=== PATIENT | male | born 1995 | race Caucasian/White ===

== ENCOUNTER 2020-12-11 04:21 | Inpatient (IN) | payer OTHER ==
[2020-12-11] MEDS ORDERED: FAMOTIDINE 20 MG/2 ML INJ IV ONE (04:23)
[2020-12-11] MEDS ORDERED: SODIUM CHLORIDE 0.9% 1000 ML 1,000 ML IV ONE (04:23)
[2020-12-11] MEDS ORDERED: KETOROLAC 30 MG/1 ML INJ IV ONE (04:23)
[2020-12-11] MEDS ORDERED: ONDANSETRON 4 MG ODT TAB PO/SL ONE (04:23)
[2020-12-11] MEDS ORDERED: MORPHINE 2 MG/1 ML INJ IV ONE (05:20)
--- NOTE | 2020-12-11 05:20 | Emergency Department Report ---
Blank Doc - Documentation Documentation: 25-year-old male with no significant past medical surgical history presents to the hospital complaining of cramp abdominal pain greatest in epigastric area with one episode of vomiting prior to arrival. Patient describes pain as 10/10 intensity and prior to my evaluation received protocol medication including Zofran, Pepcid, Toradol, and IV fluid. Denies etoh intake. Patient requesting morphine for pain. pt has tenderness on screening exam morphine 2 mg provided pt to be evaluated by oncoming provider. lab pending
[2020-12-11 05:37] LABS: Alanine Aminotransferase 584 units/L (7-56); Albumin 4.6 g/dL (3.9-5); Bilirubin,Direct 0.9 mg/dL (0-0.2); Blood Urea Nitrogen 9 mg/dL (9-20); Calcium 9.2 mg/dL (8.4-10.2); Hemolysis Index 50
[2020-12-11 05:44] LABS: BUN/Creatinine Ratio 23
[2020-12-11 05:48] LABS: Hematocrit 44.5 % (35.5-45.6); Hemoglobin 14.9 gm/dl (11.8-15.2); Mean Corpuscular HGB Conc 34 % (32-34); Mean Corpuscular Volume 95 fl (84-94); Platelet Count 248 K/mm3 (140-440); Red Cell Distribution Width 12.6 % (13.2-15.2)
[2020-12-11] MEDS ORDERED: HYDROmorphone 1 MG/1 ML INJ IV ONE (06:18)
--- NOTE | 2020-12-11 06:23 | Emergency Department Report ---
ED Abdominal Pain HPI - General Chief Complaint: Abdominal Pain Stated Complaint: EMESIS/ABD PAIN Time Seen by Provider: 12/11/20 06:13 Source: patient Mode of arrival: Ambulatory Limitations: No Limitations - History of Present Illness Initial Comments: Patient is 25 years old male with no significant past medical history. Patient presented to the ER complaining of abdominal pain, epigastric with radiation to the back. Patient stated that pain started all of a sudden last night. Patient presented with nausea and vomiting and unable to keep anything down. Patient denied any alcohol abuse recently. Patient also denied any fever or chills. No diarrhea. No chest pain or shortness of breath. MD Complaint: abdominal pain -: Last night Location: epigastric Radiation: back Migration to: no migration Severity scale (0 -10): 8 Quality: sharp Consistency: constant - Related Data Allergies Allergy/AdvReac Type Severity Reaction Status Date / Time No Known Allergies Allergy Verified 12/11/20 06:38 ED Review of Systems ROS: Stated complaint: EMESIS/ABD PAIN Other details as noted in HPI Comment: All other systems reviewed and negative Constitutional: denies: chills, fever Respiratory: denies: shortness of breath Cardiovascular: denies: chest pain, palpitations Gastrointestinal: abdominal pain, nausea, vomiting. denies: diarrhea, constipation, hematemesis, hematochezia Musculoskeletal: denies: back pain Neurological: denies: headache ED Past Medical Hx - Past Medical History Previous Medical History?: No - Surgical History Past Surgical History?: No - Social History Smoking Status: Unknown if ever smoked Substance Use Type: None ED Physical Exam - General Limitations: No Limitations General appearance: alert, in distress (due to pain) - Head Head exam: Present: atraumatic, normocephalic, normal inspection - Eye Eye exam: Present: normal appearance - ENT ENT exam: Present: mucous membranes dry - Neck Neck exam: Present: normal inspection, full ROM. Absent: tenderness, meningismus - Respiratory Respiratory exam: Present: normal lung sounds bilaterally - Cardiovascular Cardiovascular Exam: Present: regular rate, normal rhythm, normal heart sounds - GI/Abdominal GI/Abdominal exam: Present: soft, tenderness, normal bowel sounds. Absent: distended, guarding, rebound, rigid, organomegaly, mass, bruit, pulsatile mass, hernia - Extremities Exam Extremities exam: Present: normal inspection, full ROM, normal capillary refill. Absent: tenderness, pedal edema, joint swelling, calf tenderness - Back Exam Back exam: Present: normal inspection, full ROM. Absent: CVA tenderness (R), CVA tenderness (L) - Neurological Exam Neurological exam: Present: alert, oriented X3, CN II-XII intact - Psychiatric Psychiatric exam: Present: normal mood - Skin Skin exam: Present: warm, intact, normal color ED Course Vital Signs 12/11/20 12/11/20 12/11/20 04:29 04:46 05:01 Temperature 122.0 F H 97.3 F L Pulse Rate 39 L 50 L 72 Respiratory 18 18 17 Rate Blood Pressure 108/43 137/51 O2 Sat by Pulse 100 99 97 Oximetry 12/11/20 12/11/20 12/11/20 05:12 06:24 06:33 Temperature Pulse Rate 75 Respiratory 18 18 18 Rate Blood Pressure 132/75 O2 Sat by Pulse 98 Oximetry ED Medical Decision Making - Lab Data Result diagrams: 12/11/20 04:32 12/11/20 04:32 - Medical Decision Making Patient is 25 years old male with no significant past medical history. Patient presented to the ER complaining of abdominal pain, epigastric with r adiation to the back. Patient stated that pain started all of a sudden last night. Patient presented with nausea and vomiting and unable to keep anything down. Patient denied any alcohol abuse recently. Patient also denied any fever or chills. No diarrhea. No chest pain or shortness of breath. Labs showed significantly elevated lipase. CT abdomen and pelvis showed acute pancreatitis with out complication. Patient received multiple pain medication and antiemetic medication. I discussed the patient with Dr. Cortes, she advised to admit the patient to Dr. Adame. Critical care attestation.: If time is entered above; I have spent that time in minutes in the direct care of this critically ill patient, excluding procedure time. ED Disposition Clinical Impression: Acute abdominal pain, Acute nausea with nonbilious vomiting, Acute pancreatitis Disposition: OP ADMIT IP TO THIS HOSP Is pt being admited?: Yes Condition: Stable Referrals: PRIMARY CARE, [Primary Care Provider] - 3-5 Days
[2020-12-11] MEDS ORDERED: SODIUM CHLORIDE 0.9% 1000 ML 1,000 ML ONE (08:20)
[2020-12-11] MEDS: POTASSIUM CHLORIDE 10 MEQ 10 MEQ/100 ML BAG IV SCH ×2 (08:40→11:53)
[2020-12-11 08:52] LABS: Platelet Estimate Consistent w Auto; RBC Morphology Normal; Total Cells Counted 100
[2020-12-11] MEDS ORDERED: MORPHINE 2 MG/1 ML INJ ONE (09:13)
--- NOTE | 2020-12-11 09:33 | History and Physical Report ---
History of Present Illness Date of examination: 12/11/20 Date of admission: 12/11/20 08:54 Chief complaint: Abdominal pain History of present illness: Patient is a 25-year-old male with no significant past medical history except for toe surgery in the past who presents to the ED with complaint of abdominal pain that has been ongoing for about 3 days starts in the epigastric area down to the umbilical area and radiates to the back. The patient states that for the past 3 days this has been waxing and waning but all of a sudden last night became persistent associated with nausea vomiting but no diarrhea. He was unable to keep any food down. While he states that he drinks socially beer his last drink was about a week ago according to him where he had 3-4 bottles. In the ER he was noted to have a lipase of over 2000 with a clinical diagnosis of pancreatitis were asked to admit the patient for further evaluation. Pain is rated a 7/10 in intensity Past History Past Medical History: other Past Surgical History: Other (Toe surgery) Social history: lives with family, full code. denies: alcohol abuse (Although drinks socially), prescription drug abuse Family history: no significant family history Medications and Allergies Allergies Allergy/AdvReac Type Severity Reaction Status Date / Time No Known Allergies Allergy Verified 12/11/20 06:38 Active Meds: Active Medications Acetaminophen (Acetaminophen 325 Mg Tab) 650 mg PO Q4H PRN PRN Reason: Pain MILD(1-3)/Fever >100.5/HANKINS Albuterol (Albuterol 2.5 Mg/3 Ml Nebu) 2.5 mg IH Q4HRT PRN PRN Reason: Shortness Of Breath Chlordiazepoxide HCl (Chlordiazepoxide 25 Mg Cap) 50 mg PO Q1H PRN PRN Reason: CIWA-Ar 8-15 Dextrose/Lactated Ringer's (D5lr) 1,000 mls @ 125 mls/hr IV DIRECT ERAN Morphine Sulfate (Morphine 2 Mg/1 Ml Inj) 2 mg IV Q4H PRN PRN Reason: Pain, Moderate (4-6) Naloxone HCl (Naloxone 0.4 Mg/1 Ml Inj) 0.1 mg IV Q2MIN PRN PRN Reason: Res Rate </= 8 or 02 SAT < 92% Ondansetron HCl (Ondansetron 4 Mg/2 Ml Inj) 4 mg IV Q4H PRN PRN Reason: Nausea And Vomiting Sodium Chloride (Sodium Chloride 0.9% 10 Ml Flush Syringe) 10 ml IV BID ERAN Sodium Chloride (Sodium Chloride 0.9% 10 Ml Flush Syringe) 10 ml IV PRN PRN PRN Reason: LINE FLUSH Review of Systems All systems: negative Cardiovascular: no chest pain, no orthopnea, no palpitations, no rapid/irregular heart beat, no edema, no lightheadedness, no paroxysmal nocturnal dyspnea, no phlebitis, no high blood pressure Respiratory: no cough, no cough with sputum, no excessive sputum, no hemoptysis Gastrointestinal: abdominal pain, nausea, vomiting, no diarrhea, no constipation, no hematemesis, no coffee ground emesis, no melena, no early satiety, no heartburn, no jaundice, no early satiety Genitourinary Male: no flank pain, no urinary hesitancy, no nocturia, no incontinence, no testicular pain, no difficulties fathering child Musculoskeletal: no neck pain, no arm numbness/tingling, no low back pain, no shooting leg pain, no muscle weakness, no limitation of motion, no fractures, no arthritis Integumentary: no pruritis, no redness, no lesions, no depigmentation, no dryness, no color changes, no brittle nails, no foot/leg ulcers Neurological: no paralysis, no tingling, no seizures, no convulsions, no change in mentation, no confusion, no double vision, no hearing difficulties Psychiatric: no memory loss, no hypersomnia, no change in libido, no suicidal ideation, no difficulties concentrating Endocrine: no heat intolerance, no excessive thirst, no deepening of the voice, no low blood sugars Hematologic/Lymphatic: no easy bruising Allergic/Immunologic: no allergic rhinitis Exam - Physical Exam Narrative exam: VITAL SIGNS: Reviewed. GENERAL: The patient appears normally developed, Vital signs as documented. HEAD: No signs of head trauma. EYES: Pupils are equal. Extraocular motions intact. EARS: Hearing grossly intact. MOUTH: Oropharynx is normal. NECK: No adenopathy, no JVD. CHEST: Chest with clear breath sounds bilaterally. No wheezes, rales, or rhonchi. CARDIAC: Regular rate and rhythm. S1 and S2, without murmurs, gallops, or rubs. VASCULAR: No Edema. Peripheral pulses normal and equal in all extremities. ABDOMEN: Soft, tender in the epigastric area and non distended. No rebound or guarding, and no masses palpated. Bowel Sounds normal. MUSCULOSKELETAL: Good range of motion of all major joints. Extremities without clubbing, cyanosis or edema. NEUROLOGIC EXAM: Alert and oriented x 3 No focal sensory or strength deficits. Speech normal. Follows commands. PSYCHIATRIC: Mood normal. SKIN: detail exam as documented in skin assessment - Constitutional Vitals: Temp Pulse Resp BP Pulse Ox 97.3 F L 75 18 132/75 98 12/11/20 04:46 12/11/20 06:24 12/11/20 06:33 12/11/20 06:24 12/11/20 06:24 Results - Labs CBC & Chem 7: 12/11/20 04:32 12/11/20 04:32 Labs: Laboratory Last Values WBC 12.7 K/mm3 (4.5-11.0) H 12/11/20 04:32 RBC 4.70 M/mm3 (3.65-5.03) 12/11/20 04:32 Hgb 14.9 gm/dl (11.8-15.2) 12/11/20 04:32 Hct 44.5 % (35.5-45.6) 12/11/20 04:32 MCV 95 fl (84-94) H 12/11/20 04:32 MCH 32 pg (28-32) 12/11/20 04:32 MCHC 34 % (32-34) 12/11/20 04:32 RDW 12.6 % (13.2-15.2) L 12/11/20 04:32 Plt Count 248 K/mm3 (140-440) 12/11/20 04:32 Baso % (Auto) Taker Off 12/11/20 04:32 Lymph # (Auto) Taker Off 12/11/20 04:32 Add Manual Diff Complete 12/11/20 04:32 Total Counted 100 12/11/20 04:32 Seg Neuts % (Manual) 41.0 % (40.0-70.0) 12/11/20 04:32 Lymphocytes % (Manual) 54.0 % (13.4-35.0) H 12/11/20 04:32 Monocytes % (Manual) 4.0 % (0.0-7.3) 12/11/20 04:32 Eosinophils % (Manual) 1.0 % (0.0-4.3) 12/11/20 04:32 Nucleated RBC % Not Reportable 12/11/20 04:32 Seg Neutrophils # Man 5.2 K/mm3 (1.8-7.7) 12/11/20 04:32 Band Neutrophils # 0.0 K/mm3 12/11/20 04:32 Lymphocytes # (Manual) 6.9 K/mm3 (1.2-5.4) H 12/11/20 04:32 Abs React Lymphs (Man) 0.0 K/mm3 12/11/20 04:32 Monocytes # (Manual) 0.5 K/mm3 (0.0-0.8) 12/11/20 04:32 Eosinophils # (Manual) 0.1 K/mm3 (0.0-0.4) 12/11/20 04:32 Basophils # (Manual) 0.0 K/mm3 (0.0-0.1) 12/11/20 04:32 Metamyelocytes # 0.0 K/mm3 12/11/20 04:32 Myelocytes # 0.0 K/mm3 12/11/20 04:32 Promyelocytes # 0.0 K/mm3 12/11/20 04:32 Blast Cells # 0.0 K/mm3 12/11/20 04:32 WBC Morphology Not Reportable 12/11/20 04:32 Hypersegmented Neuts Not Reportable 12/11/20 04:32 Hyposegmented Neuts Not Reportable 12/11/20 04:32 Hypogranular Neuts Not Reportable 12/11/20 04:32 Smudge Cells Not Reportable 12/11/20 04:32 Toxic Granulation Not Reportable 12/11/20 04:32 Toxic Vacuolation Not Reportable 12/11/20 04:32 Dohle Bodies Not Reportable 12/11/20 04:32 Pelger-Huet Anomaly Not Reportable 12/11/20 04:32 Annie Rods Not Reportable 12/11/20 04:32 Platelet Estimate Consistent w auto 12/11/20 04:32 Clumped Platelets Not Reportable 12/11/20 04:32 Plt Clumps, EDTA Not Reportable 12/11/20 04:32 Large Platelets Not Reportable 12/11/20 04:32 Giant Platelets Not Reportable 12/11/20 04:32 Platelet Satelliting Not Reportable 12/11/20 04:32 Plt Morphology Comment Not Reportable 12/11/20 04:32 RBC Morphology Normal 12/11/20 04:32 Dimorphic RBCs Not Reportable 12/11/20 04:32 Polychromasia Not Reportable 12/11/20 04:32 Hypochromasia Not Reportable 12/11/20 04:32 Poikilocytosis Not Reportable 12/11/20 04:32 Anisocytosis Not Reportable 12/11/20 04:32 Microcytosis Not Reportable 12/11/20 04:32 Macrocytosis Not Reportable 12/11/20 04:32 Spherocytes Not Reportable 12/11/20 04:32 Pappenheimer Bodies Not Reportable 12/11/20 04:32 Sickle Cells Not Reportable 12/11/20 04:32 Target Cells Not Reportable 12/11/20 04:32 Tear Drop Cells Not Reportable 12/11/20 04:32 Ovalocytes Not Reportable 12/11/20 04:32 Helmet Cells Not Reportable 12/11/20 04:32 [place] Bodies Not Reportable 12/11/20 04:32 Aurora Rings Not Reportable 12/11/20 04:32 Hemanth Cells Not Reportable 12/11/20 04:32 Bite Cells Not Reportable 12/11/20 04:32 Crenated Cell Not Reportable 12/11/20 04:32 Elliptocytes Not Reportable 12/11/20 04:32 Acanthocytes (Spur) Not Reportable 12/11/20 04:32 Rouleaux Not Reportable 12/11/20 04:32 Hemoglobin C Crystals Not Reportable 12/11/20 04:32 Schistocytes Not Reportable 12/11/20 04:32 Malaria parasites Not Reportable 12/11/20 04:32 Alex Bodies Not Reportable 12/11/20 04:32 Hem Pathologist Commnt No 12/11/20 04:32 Sodium 139 mmol/L (137-145) 12/11/20 04:32 Potassium 3.2 mmol/L (3.6-5.0) L 12/11/20 04:32 Chloride 101.8 mmol/L (98-107) 12/11/20 04:32 Carbon Dioxide 23 mmol/L (22-30) 12/11/20 04:32 Anion Gap 17 mmol/L 12/11/20 04:32 BUN 9 mg/dL (9-20) 12/11/20 04:32 Creatinine 0.4 mg/dL (0.8-1.3) L 12/11/20 04:32 Estimated GFR > 60 ml/min 12/11/20 04:32 BUN/Creatinine Ratio 23 % 12/11/20 04:32 Glucose 144 mg/dL (75-100) H 12/11/20 04:32 Calcium 9.2 mg/dL (8.4-10.2) 12/11/20 04:32 Total Bilirubin 1.50 mg/dL (0.1-1.2) H 12/11/20 04:32 Direct Bilirubin 0.9 mg/dL (0-0.2) H 12/11/20 04:32 Indirect Bilirubin 0.6 mg/dL 12/11/20 04:32 AST 226 units/L (5-40) H 12/11/20 04:32 ALT 584 units/L (7-56) H 12/11/20 04:32 Alkaline Phosphatase 160 units/L (35-129) H 12/11/20 04:32 Total Protein 7.4 g/dL (6.3-8.2) 12/11/20 04:32 Albumin 4.6 g/dL (3.9-5) 12/11/20 04:32 Albumin/Globulin Ratio 1.6 % 12/11/20 04:32 Lipase 2544 units/L (13-60) H 12/11/20 04:32 Quintana/IV: IV Catheter Type [Left INT / Saline Lock Antecubital] Assessment and Plan Assessment and plan: Patient is a 25-year-old male with no significant past medical history except for toe surgery in the past who presents to the ED with complaint of abdominal p ain that has been ongoing for about 3 days starts in the epigastric area down to the umbilical area and radiates to the back. The patient states that for the past 3 days this has been waxing and waning but all of a sudden last night became persistent associated with nausea vomiting but no diarrhea. He was unable to keep any food down. While he states that he drinks socially beer his last drink was about a week ago according to him where he had 3-4 bottles. In the ER he was noted to have a lipase of over 2000 with a clinical diagnosis of pancreatitis were asked to admit the patient for further evaluation. Pain is rated a 7/10 in intensity Imaging study of ultrasound obtained shows cholelithiasis with inflamed pancreas. Dilated common bile duct. Abdominal pain Acute pancreatitis likely causing above could be gallstone Cholelithiasis Transaminitis Hyperbilirubinemia Plan Admit patient to inpatient care [facility] protocol Pain control with Dilaudid patient has received multiple doses in the ED already. Antiemetics Keep n.p.o. If patient becomes hungry wants to eat may try clear liquid diet. Reassess pain Surgical consult. EtOH use counseling considering social use but bottle count in my opinion is excess DVT and GI prophylaxis Advance Directives: Yes Plan of care discussed with patient/family: Yes
[2020-12-11] MEDS ORDERED: NALOXONE 0.4 MG/1 ML INJ IV PRN (10:00)
--- NOTE | 2020-12-11 11:04 | Ultrasound Report ---
ULTRASOUND ABDOMEN, COMPLETE INDICATION / CLINICAL INFORMATION: pancreatitis. COMPARISON: None available. FINDINGS: PANCREAS: Pancreatic tail is not well seen ABDOMINAL AORTA: No significant abnormality. IVC: No significant abnormality. LIVER: Liver measures 16 cm. There is fatty infiltration. GALLBLADDER: Gallstones. No gallbladder wall thickening. BILE DUCTS: Marked dilatation the common bile duct Common bile duct measures 10 mm. KIDNEYS: Right: No significant abnormality. Left: No significant abnormality. SPLEEN: Enlarged measuring 12.9 cm FREE FLUID: None. ADDITIONAL FINDINGS: None. IMPRESSION: 1. Cholelithiasis. No pericholecystic fluid. 2. Common bile duct is dilated measuring 10 mm. No definite ductal stone is seen on this exam however clinical correlation and follow-up. 3. Fatty infiltration liver. Spleen is mildly enlarged. Signer Name: Josué Jackson MD Signed: 12/11/2020 11:00 AM Workstation Name: [email or web address]
[2020-12-11] MEDS ORDERED: POTASSIUM CHLORIDE 10 MEQ 10 MEQ/100 ML BAG IV ONE (11:23)
[2020-12-11] MEDS: HYDROmorphone 1 MG/1 ML INJ IV PRN ×3 (11:40→21:18)
[2020-12-11] MEDS: D5W/LACTATED RINGERS 1,000 ML IV SCH ×2 (11:53→22:26)
[2020-12-11] MEDS ORDERED: ALBUTEROL 2.5 MG/3 ML NEBU IH PRN (12:00)
[2020-12-11] MEDS: ONDANSETRON 4 MG/2 ML INJ IV PRN (12:40)
[2020-12-11] MEDS: MORPHINE 2 MG/1 ML INJ IV PRN (13:13)
--- NOTE | 2020-12-11 15:41 | Magnetic Resonance Report ---
MR ABDOMEN MRCP HISTORY: Dilated common bile duct TECHNIQUE: Multisequence, multiplanar MRI without contrast. Thin slab and radial MRCP images. COMPARISON: CT abdomen and pelvis and ultrasound abdomen performed earlier the same day. FINDINGS: Moderate fluid and inflammatory changes surrounding the pancreas extending to the left paracolic gutt er. The pancreatic parenchyma is mildly edematous but homogeneous. No evidence for mass, pseudocyst o r necrosis. Mild hepatic steatosis is noted. No focal liver lesion. The gallbladder is partially contracted and c ontains a few stones measuring up to 7 mm. The MRCP images demonstrate no evidence for choledocholith iasis or intrahepatic biliary dilatation. The CBD measures 6.8 mm on MRCP. Signal characteristics of the spleen, kidneys, adrenal glands and visualized bowel loops are within n ormal limits. The vascular structures are widely patent. Normal bone marrow signal in the visualized osseous structures. IMPRESSION: Findings consistent with acute interstitial pancreatitis. Cholelithiasis. No evidence for choledocholithiasis. The CBD measures 6.8 mm on MRCP. Signer Name: Leonel Kothari Jr, MD Signed: 12/11/2020 3:36 PM Workstation Name: [id number]
[2020-12-11] MEDS: METOCLOPRAMIDE 10 MG/2 ML INJ IV SCH ×2 (15:51→22:26)
--- NOTE | 2020-12-11 16:13 | Consultation ---
History of Present Illness Consult date: 12/11/20 Reason for consult: abdominal pain Chief complaint: abdominal pain - History of present illness History of present illness: 25 yo M with no PMHx who presented to ER with c/o severe, sharp abdominal pain. The pain is located in the epigastrum and radiates to the rest of the abdomen. It started 3 days prior to presentation and waxes and wanes. However, it woke him from sleep today and so he came to ER. He had pain like this one time before and it resolved on its own. NO f/c, cp, sob. +nausea and vomiting. 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 Past History Past Medical History: No medical history Past Surgical History: Other (R ankle surgery, Toe surgery) Social history: lives with family, full code. denies: alcohol abuse (Although drinks socially), prescription drug abuse Family history: no significant family history Medications and Allergies Allergies Allergy/AdvReac Type Severity Reaction Status Date / Time No Known Allergies Allergy Verified 12/11/20 06:38 Active Meds: Active Medications Acetaminophen (Acetaminophen 325 Mg Tab) 650 mg PO Q4H PRN PRN Reason: Pain MILD(1-3)/Fever >100.5/HANKINS Albuterol (Albuterol 2.5 Mg/3 Ml Nebu) 2.5 mg IH Q4HRT PRN PRN Reason: Shortness Of Breath Chlordiazepoxide HCl (Chlordiazepoxide 25 Mg Cap) 50 mg PO Q1H PRN PRN Reason: CIWA-Ar 8-15 Hydromorphone HCl (Hydromorphone 1 Mg/1 Ml Inj) 0.5 mg IV Q3H PRN PRN Reason: Pain , Severe (7-10) Last Admin: 12/11/20 15:37 Dose: 0.5 mg Documented by: Dextrose/Lactated Ringer's (D5lr) 1,000 mls @ 125 mls/hr IV DIRECT ERAN Last Admin: 12/11/20 11:53 Dose: 125 mls/hr Documented by: Metoclopramide HCl (Metoclopramide 10 Mg/2 Ml Inj) 10 mg IV Q8H ERAN Morphine Sulfate (Morphine 2 Mg/1 Ml Inj) 2 mg IV Q4H PRN PRN Reason: Pain, Moderate (4-6) Last Admin: 12/11/20 13:13 Dose: 2 mg Documented by: Naloxone HCl (Naloxone 0.4 Mg/1 Ml Inj) 0.1 mg IV Q2MIN PRN PRN Reason: Res Rate </= 8 or 02 SAT < 92% Ondansetron HCl (Ondansetron 4 Mg/2 Ml Inj) 4 mg IV Q4H PRN PRN Reason: Nausea And Vomiting Last Admin: 12/11/20 12:40 Dose: 4 mg Documented by: Sodium Chloride (Sodium Chloride 0.9% 10 Ml Flush Syringe) 10 ml IV BID ERAN Sodium Chloride (Sodium Chloride 0.9% 10 Ml Flush Syringe) 10 ml IV PRN PRN PRN Reason: LINE FLUSH Review of Systems All systems: negative (10 pt ROS performed and negative except for that listed in HPI) Exam Vital Signs Temp Pulse Resp BP Pulse Ox 122.0 F H 39 L 18 108/43 100 12/11/20 04:29 12/11/20 04:29 12/11/20 04:29 12/11/20 04:12/11/20 04:29 Narrative exam: Gen: AAOx3. NAD ENT: No scleral icterus or conjunctival pallor CV: S1, S2+ Resp: even and unlabored Abd: soft, ND, +epigastric and b/l upper quadrant TTP. No r/r/g Ext: no c/c/e Results - Labs 12/11/20 04:32 12/11/20 04:32 Abnormal lab results 12/11/20 12/11/20 Range/Units 04:32 04:32 WBC 12.7 H (4.5-11.0) K/mm3 MCV 95 H (84-94) fl RDW 12.6 L (13.2-15.2) % Lymphocytes % (Manual) 54.0 H (13.4-35.0) % Lymphocytes # (Manual) 6.9 H (1.2-5.4) K/mm3 Potassium 3.2 L (3.6-5.0) mmol/L Creatinine 0.4 L (0.8-1.3) mg/dL Glucose 144 H (75-100) mg/dL Total Bilirubin 1.50 H (0.1-1.2) mg/dL Direct Bilirubin 0.9 H (0-0.2) mg/dL AST 226 H (5-40) units/L ALT 584 H (7-56) units/L Alkaline Phosphatase 160 H (35-129) units/L Lipase 2544 H (13-60) units/L Diabetes panel 12/11/20 Range/Units 04:32 Sodium 139 (137-145) mmol/L Potassium 3.2 L (3.6-5.0) mmol/L Chloride 101.8 (98-107) mmol/L Carbon Dioxide 23 (22-30) mmol/L BUN 9 (9-20) mg/dL Creatinine 0.4 L (0.8-1.3) mg/dL Glucose 144 H (75-100) mg/dL Calcium 9.2 (8.4-10.2) mg/dL AST 226 H (5-40) units/L ALT 584 H (7-56) units/L Alkaline Phosphatase 160 H (35-129) units/L Total Protein 7.4 (6.3-8.2) g/dL Albumin 4.6 (3.9-5) g/dL Calcium panel 12/11/20 Range/Units 04:32 Calcium 9.2 (8.4-10.2) mg/dL Albumin 4.6 (3.9-5) g/dL Pituitary panel 12/11/20 Range/Units 04:32 Sodium 139 (137-145) mmol/L Potassium 3.2 L (3.6-5.0) mmol/L Chloride 101.8 (98-107) mmol/L Carbon Dioxide 23 (22-30) mmol/L BUN 9 (9-20) mg/dL Creatinine 0.4 L (0.8-1.3) mg/dL Glucose 144 H (75-100) mg/dL Calcium 9.2 (8.4-10.2) mg/dL Adrenal panel 12/11/20 Range/Units 04:32 Sodium 139 (137-145) mmol/L Potassium 3.2 L (3.6-5.0) mmol/L Chloride 101.8 (98-107) mmol/L Carbon Dioxide 23 (22-30) mmol/L BUN 9 (9-20) mg/dL Creatinine 0.4 L (0.8-1.3) mg/dL Glucose 144 H (75-100) mg/dL Calcium 9.2 (8.4-10.2) mg/dL Total Bilirubin 1.50 H (0.1-1.2) mg/dL AST 226 H (5-40) units/L ALT 584 H (7-56) units/L Alkaline Phosphatase 160 H (35-129) units/L Total Protein 7.4 (6.3-8.2) g/dL Albumin 4.6 (3.9-5) g/dL - Imaging CT scan - abdomen: report reviewed, image reviewed CT scan - pelvis: report reviewed, image reviewed US - abdomen: report reviewed, image reviewed Additional studies: MRCP - cholelithiasis, no choledocolithiasis, +pancreatitis Assessment and Plan 25 yo M with gallstone pancreatitis Plan: 1. NPO 2. IVF - increase to 150cc/hr 3. repeat CMP, lipase in am 4. DVT ppx 5. prn pain and nausea control 6. Recommend cholecystectomy this admission. Discussed all risks, benefits, alternatives to surgery with patient. All questions answered. Pt agreeable. Consent obtained. Patient added to OR schedule for tomorrow. Thank you, please call with questions.
[2020-12-12] MEDS: HYDROmorphone 1 MG/1 ML INJ IV PRN ×6 (01:26→23:57)
[2020-12-12] MEDS: METOCLOPRAMIDE 10 MG/2 ML INJ IV SCH ×3 (05:37→21:47)
[2020-12-12] MEDS: D5W/LACTATED RINGERS 1,000 ML IV SCH (05:38)
[2020-12-12 05:51] LABS: Basophils % (Auto) 0.3 % (0.0-1.8); Hematocrit 44.6 % (35.5-45.6); Hemoglobin 14.9 gm/dl (11.8-15.2); Lymphocytes # (Auto) 1.6 K/mm3 (1.2-5.4); Lymphocytes % (Auto) 10.6 % (13.4-35.0); Mean Corpuscular HGB Conc 33 % (32-34); Mean Corpuscular Volume 94 fl (84-94); Monocytes % (Auto) 6.3 % (0.0-7.3); Platelet Count 198 K/mm3 (140-440); Red Blood Count 4.74 M/mm3 (3.65-5.03); Red Cell Distribution Width 12.9 % (13.2-15.2)
[2020-12-12 06:12] LABS: Alanine Aminotransferase 345 units/L (7-56); BUN/Creatinine Ratio 13; Blood Urea Nitrogen 10 mg/dL (9-20); Calcium 8.7 mg/dL (8.4-10.2); Hemolysis Index 2
--- NOTE | 2020-12-12 09:17 | Progress Note ---
Assessment and Plan 25 yo M with gallstone pancreatitis Plan: 1. May have sips of clear liquids, NPO p MN tonight 2. IVF 3. repeat CMP, lipase in am 4. DVT ppx 5. prn pain and nausea control 6. Lipase is improved but still markedly elevated. Will need more resuscitation prior to OR. Will repeat lipase in am and schedule for surgery accordingly. 7. Discussed cholecystectomy with patient and he is agreeable. Consent on chart. D/W Dr. Adame. Plan discussed with patient's RN and patient. Thank you, please call with questions. Subjective Date of service: 12/12/20 Narrative: Pt seen and examined. States he is thirsty. Pain mildly improved. No f/c. No cp, sob. Objective Vital Signs - 12hr 12/11/20 12/12/20 12/12/20 21:18 00:00 00:11 Temperature 99.7 F H Pulse Rate 117 H 107 H Respiratory 20 20 Rate Blood Pressure 142/81 Blood Pressure [Right] O2 Sat by Pulse 93 Oximetry 12/12/20 12/12/20 12/12/20 04:00 08:03 08:22 Temperature 99.0 F 100.2 F H Pulse Rate 95 H 110 H Respiratory 20 Rate Blood Pressure 131/74 Blood Pressure 140/80 [Right] O2 Sat by Pulse 93 91 90 Oximetry - General physical appearance Narrative Exam: Gen: AAOx3. NAD CV: s1, S2+ Resp: even and unlabored Abd: soft, ND, mild TTP in upper abdomen. No r/r/g Ext: no c/c/e - Labs 12/12/20 05:11 12/12/20 05:11 Diabetes panel 12/12/20 Range/Units 05:11 Sodium 136 L (137-145) mmol/L Potassium 3.8 (3.6-5.0) mmol/L Chloride 100.8 (98-107) mmol/L Carbon Dioxide 28 (22-30) mmol/L BUN 10 (9-20) mg/dL Creatinine 0.8 D (0.8-1.3) mg/dL Glucose 122 H (75-100) mg/dL Calcium 8.7 (8.4-10.2) mg/dL AST 70 H (5-40) units/L ALT 345 H (7-56) units/L Alkaline Phosphatase 120 (35-129) units/L Total Protein 6.8 (6.3-8.2) g/dL Albumin 4.0 (3.9-5) g/dL Calcium panel 12/12/20 Range/Units 05:11 Calcium 8.7 (8.4-10.2) mg/dL Albumin 4.0 (3.9-5) g/dL Pituitary panel 12/12/20 Range/Units 05:11 Sodium 136 L (137-145) mmol/L Potassium 3.8 (3.6-5.0) mmol/L Chloride 100.8 (98-107) mmol/L Carbon Dioxide 28 (22-30) mmol/L BUN 10 (9-20) mg/dL Creatinine 0.8 D (0.8-1.3) mg/dL Glucose 122 H (75-100) mg/dL Calcium 8.7 (8.4-10.2) mg/dL Adrenal panel 12/12/20 Range/Units 05:11 Sodium 136 L (137-145) mmol/L Potassium 3.8 (3.6-5.0) mmol/L Chloride 100.8 (98-107) mmol/L Carbon Dioxide 28 (22-30) mmol/L BUN 10 (9-20) mg/dL Creatinine 0.8 D (0.8-1.3) mg/dL Glucose 122 H (75-100) mg/dL Calcium 8.7 (8.4-10.2) mg/dL Total Bilirubin 1.30 H (0.1-1.2) mg/dL AST 70 H (5-40) units/L ALT 345 H (7-56) units/L Alkaline Phosphatase 120 (35-129) units/L Total Protein 6.8 (6.3-8.2) g/dL Albumin 4.0 (3.9-5) g/dL
[2020-12-12] MEDS: SODIUM CHLORIDE 0.9% 1000 ML 1,000 ML IV SCH ×3 (09:33→23:59)
--- NOTE | 2020-12-12 11:11 | Cat Scan Report ---
CT ABDOMEN AND PELVIS WITH CONTRAST INDICATION: Patient complains of upper abdominal pain. CONTRAST: 100 cc Omnipaque 300 IV COMPARISON: None available. All CT scans at this location are performed using CT dose reduction for ALARA by means of automated e xposure control. FINDINGS: Lung bases show only mild atelectatic changes. No pneumoperitoneum is seen. No significant abdominal wall herniation is noted. A mildly prominent node is seen in the left periaortic area level the kidneys with short axis diameter 14 mm. No other adenopathy is seen. No evidence of bowel obstru ction is noted. Appendix appears within normal limits. No urinary obstructive changes are seen. Fatty infiltration of the liver is noted without obvious focal lesion. Liver is mildly enlarged and has a length of 19.3 cm. Spleen is not enlarged. Gallbladder shows no acute changes. No biliary dilatation is seen. The pancreas shows moderate inflammation and moderate stranding of fluid is seen in the peripancreati c tissues. This fluid extends laterally to the lateral abdomen on the left. No significant intraperit chou fluid is seen. No organized fluid collection is seen to suggest an pseudocyst. No evidence of n ecrosis or hemorrhage are seen. No pancreatic ductal dilatation is noted. No pancreatic masses are se en. IMPRESSION: 1. Acute pancreatitis without obvious complication 2. Mildly prominent retroperitoneal lymph node. Recommend follow-up. 3. Moderate fatty infiltration of the liver with mild hepatomegaly Signer Name: Errol Garcia MD Signed: 12/11/2020 6:33 AM Workstation Name: [id number]
--- NOTE | 2020-12-12 11:31 | Progress Note ---
Assessment and Plan Assessment and plan: Patient is a 25-year-old male with no significant past medical history except for toe surgery in the past who presents to the ED with complaint of abdominal pain that has been ongoing for about 3 days starts in the epigastric area down to the umbilical area and radiates to the back. The patient states that for the past 3 days this has been waxing and waning but all of a sudden last night became persistent associated with nausea vomiting but no diarrhea. He was unable to keep any food down. While he states that he drinks socially beer his last drink was about a week ago according to him where he had 3-4 bottles. In the ER he was noted to have a lipase of over 2000 with a clinical diagnosis of pancreatitis were asked to admit the patient for further evaluation. Pain is rated a 7/10 in intensity Imaging study of ultrasound obtained shows cholelithiasis with inflamed pancreas. Dilated common bile duct. 12/12: Surgeon's input noted patient undergoing cholecystectomy today. MRI of the abdomen reviewed no choledocholithiasis noted. Continue n.p.o. until surgery continue pain control and hydration. Plan discussed with the patient verbalized understanding Abdominal pain Acute pancreatitis likely causing above could be gallstone Cholelithiasis Transaminitis Hyperbilirubinemia Plan Admit patient to inpatient care [facility] protocol Pain control with Dilaudid patient has received multiple doses in the ED already. Antiemetics Keep n.p.o. If patient becomes hungry wants to eat may try clear liquid diet. Reassess pain Surgical consult. EtOH use counseling considering social use but bottle count in my opinion is excess DVT and GI prophylaxis History Interval history: Patient seen and examined this morning complains of mild abdominal pain and be ing hungry otherwise no new complaints. Hospitalist Physical - Physical exam Narrative exam: VITAL SIGNS: Reviewed. GENERAL: The patient appears normally developed, Vital signs as documented. HEAD: No signs of head trauma. EYES: Pupils are equal. Extraocular motions intact. EARS: Hearing grossly intact. MOUTH: Oropharynx is normal. NECK: No adenopathy, no JVD. CHEST: Chest with clear breath sounds bilaterally. No wheezes, rales, or rhonchi. CARDIAC: Regular rate and rhythm. S1 and S2, without murmurs, gallops, or rubs. VASCULAR: No Edema. Peripheral pulses normal and equal in all extremities. ABDOMEN: Soft, tender in the epigastric area and non distended. No rebound or guarding, and no masses palpated. Bowel Sounds normal. MUSCULOSKELETAL: Good range of motion of all major joints. Extremities without clubbing, cyanosis or edema. NEUROLOGIC EXAM: Alert and oriented x 3 No focal sensory or strength deficits. Speech normal. Follows commands. PSYCHIATRIC: Mood normal. SKIN: detail exam as documented in skin assessment - Constitutional Vitals: Temp Pulse Resp BP Pulse Ox 100.2 F H 110 H 20 131/74 90 12/12/20 08:03 12/12/20 08:03 12/12/20 04:00 12/12/20 08:03 12/12/20 08:22 Results - Labs CBC & Chem 7: 12/12/20 05:11 12/12/20 05:11 Labs: Laboratory Last Values WBC 15.3 K/mm3 (4.5-11.0) H 12/12/20 05:11 RBC 4.74 M/mm3 (3.65-5.03) 12/12/20 05:11 Hgb 14.9 gm/dl (11.8-15.2) 12/12/20 05:11 Hct 44.6 % (35.5-45.6) 12/12/20 05:11 MCV 94 fl (84-94) 12/12/20 05:11 MCH 31 pg (28-32) 12/12/20 05:11 MCHC 33 % (32-34) 12/12/20 05:11 RDW 12.9 % (13.2-15.2) L 12/12/20 05:11 Plt Count 198 K/mm3 (140-440) 12/12/20 05:11 Lymph % (Auto) 10.6 % (13.4-35.0) L 12/12/20 05:11 [place] % (Auto) 6.3 % (0.0-7.3) 12/12/20 05:11 Eos % (Auto) 0.0 % (0.0-4.3) 12/12/20 05:11 Baso % (Auto) 0.3 % (0.0-1.8) 12/12/20 05:11 Lymph # (Auto) 1.6 K/mm3 (1.2-5.4) 12/12/20 05:11 [place] # (Auto) 1.0 K/mm3 (0.0-0.8) H 12/12/20 05:11 Eos # (Auto) 0.0 K/mm3 (0.0-0.4) 12/12/20 05:11 Baso # (Auto) 0.0 K/mm3 (0.0-0.1) 12/12/20 05:11 Add Manual Diff Complete 12/11/20 04:32 Total Counted 100 12/11/20 04:32 Seg Neutrophils % 82.8 % (40.0-70.0) H 12/12/20 05:11 Seg Neuts % (Manual) 41.0 % (40.0-70.0) 12/11/20 04:32 Lymphocytes % (Manual) 54.0 % (13.4-35.0) H 12/11/20 04:32 Monocytes % (Manual) 4.0 % (0.0-7.3) 12/11/20 04:32 Eosinophils % (Manual) 1.0 % (0.0-4.3) 12/11/20 04:32 Nucleated RBC % Not Reportable 12/11/20 04:32 Seg Neutrophils # 12.7 K/mm3 (1.8-7.7) H 12/12/20 05:11 Seg Neutrophils # Man 5.2 K/mm3 (1.8-7.7) 12/11/20 04:32 Band Neutrophils # 0.0 K/mm3 12/11/20 04:32 Lymphocytes # (Manual) 6.9 K/mm3 (1.2-5.4) H 12/11/20 04:32 Abs React Lymphs (Man) 0.0 K/mm3 12/11/20 04:32 Monocytes # (Manual) 0.5 K/mm3 (0.0-0.8) 12/11/20 04:32 Eosinophils # (Manual) 0.1 K/mm3 (0.0-0.4) 12/11/20 04:32 Basophils # (Manual) 0.0 K/mm3 (0.0-0.1) 12/11/20 04:32 Metamyelocytes # 0.0 K/mm3 12/11/20 04:32 Myelocytes # 0.0 K/mm3 12/11/20 04:32 Promyelocytes # 0.0 K/mm3 12/11/20 04:32 Blast Cells # 0.0 K/mm3 12/11/20 04:32 WBC Morphology Not Reportable 12/11/20 04:32 Hypersegmented Neuts Not Reportable 12/11/20 04:32 Hyposegmented Neuts Not Reportable 12/11/20 04:32 Hypogranular Neuts Not Reportable 12/11/20 04:32 Smudge Cells Not Reportable 12/11/20 04:32 Toxic Granulation Not Reportable 12/11/20 04:32 Toxic Vacuolation Not Reportable 12/11/20 04:32 Dohle Bodies Not Reportable 12/11/20 04:32 Pelger-Huet Anomaly Not Reportable 12/11/20 04:32 Annie Rods Not Reportable 12/11/20 04:32 Platelet Estimate Consistent w auto 12/11/20 04:32 Clumped Platelets Not Reportable 12/11/20 04:32 Plt Clumps, EDTA Not Reportable 12/11/20 04:32 Large Platelets Not Reportable 12/11/20 04:32 Giant Platelets Not Reportable 12/11/20 04:32 Platelet Satelliting Not Reportable 12/11/20 04:32 Plt Morphology Comment Not Reportable 12/11/20 04:32 RBC Morphology Normal 12/11/20 04:32 Dimorphic RBCs Not Reportable 12/11/20 04:32 Polychromasia Not Reportable 12/11/20 04:32 Hypochromasia Not Reportable 12/11/20 04:32 Poikilocytosis Not Reportable 12/11/20 04:32 Anisocytosis Not Reportable 12/11/20 04:32 Microcytosis Not Reportable 12/11/20 04:32 Macrocytosis Not Reportable 12/11/20 04:32 Spherocytes Not Reportable 12/11/20 04:32 Pappenheimer Bodies Not Reportable 12/11/20 04:32 Sickle Cells Not Reportable 12/11/20 04:32 Target Cells Not Reportable 12/11/20 04:32 Tear Drop Cells Not Reportable 12/11/20 04:32 Ovalocytes Not Reportable 12/11/20 04:32 Helmet Cells Not Reportable 12/11/20 04:[address] [place] Bodies Not Reportable 12/11/20 04:32 [place] Rings Not Reportable 12/11/20 04:32 Hemanth Cells Not Reportable 12/11/20 04:32 Bite Cells Not Reportable 12/11/20 04:32 Crenated Cell Not Reportable 12/11/20 04:32 Elliptocytes Not Reportable 12/11/20 04:32 Acanthocytes (Spur) Not Reportable 12/11/20 04:32 Rouleaux Not Reportable 12/11/20 04:32 Hemoglobin C Crystals Not Reportable 12/11/20 04:32 Schistocytes Not Reportable 12/11/20 04:32 Malaria parasites Not Reportable 12/11/20 04:32 Alex Bodies Not Reportable 12/11/20 04:32 Hem Pathologist Commnt No 12/11/20 04:32 Sodium 136 mmol/L (137-145) L 12/12/20 05:11 Potassium 3.8 mmol/L (3.6-5.0) 12/12/20 05:11 Chloride 100.8 mmol/L (98-107) 12/12/20 05:11 Carbon Dioxide 28 mmol/L (22-30) 12/12/20 05:11 Anion Gap 11 mmol/L 12/12/20 05:11 BUN 10 mg/dL (9-20) 12/12/20 05:11 Creatinine 0.8 mg/dL (0.8-1.3) D 12/12/20 05:11 Estimated GFR > 60 ml/min 12/12/20 05:11 BUN/Creatinine Ratio 13 % 12/12/20 05:11 Glucose 122 mg/dL (75-100) H 12/12/20 05:11 Calcium 8.7 mg/dL (8.4-10.2) 12/12/20 05:11 Magnesium 2.00 mg/dL (1.7-2.3) 12/11/20 10:48 Total Bilirubin 1.30 mg/dL (0.1-1.2) H 12/12/20 05:11 Direct Bilirubin 0.9 mg/dL (0-0.2) H 12/11/20 04:32 Indirect Bilirubin 0.6 mg/dL 12/11/20 04:32 AST 70 units/L (5-40) H 12/12/20 05:11 ALT 345 units/L (7-56) H 12/12/20 05:11 Alkaline Phosphatase 120 units/L (35-129) 12/12/20 05:11 Ammonia 50.0 umol/L (25-60) 12/11/20 10:48 Total Protein 6.8 g/dL (6.3-8.2) 12/12/20 05:11 Albumin 4.0 g/dL (3.9-5) 12/12/20 05:11 Albumin/Globulin Ratio 1.4 % 12/12/20 05:11 Lipase 1531 units/L (13-60) H 12/12/20 05:11 Quintana/IV: Voiding Method Toilet IV Catheter Type [Left INT / Saline Lock Antecubital] Active Medications - Current Medications Current Medications: Generic Name Dose Route Start Last Admin Trade Name Freq PRN Reason Stop Dose Admin Acetaminophen 650 mg 12/11/20 10:00 Acetaminophen 325 Mg Tab PO Q4H PRN Pain MILD(1-3)/Fever >100.5/HANKINS Albuterol 2.5 mg 12/11/20 12:00 Albuterol 2.5 Mg/3 Ml Nebu IH Q4HRT PRN Shortness Of Breath Chlordiazepoxide HCl 50 mg 12/11/20 10:00 Chlordiazepoxide 25 Mg Cap PO Q1H PRN CIWA-Ar 8-15 Hydromorphone HCl 0.5 mg 12/11/20 11:17 12/12/20 09:31 Hydromorphone 1 Mg/1 Ml Inj IV 0.5 mg Q3H PRN Administration Pain , Severe (7-10) Sodium Chloride 1,000 mls @ 150 mls/hr 12/12/20 09:30 12/12/20 09:33 Nacl 0.9% 1000 Ml IV 150 mls/hr DIRECT ERAN Administration Metoclopramide HCl 10 mg 12/11/20 14:35 12/12/20 05:37 Metoclopramide 10 Mg/2 Ml Inj IV 10 mg Q8H ERAN Administration Morphine Sulfate 2 mg 12/11/20 10:00 12/11/20 13:13 Morphine 2 Mg/1 Ml Inj IV 2 mg Q4H PRN Administration Pain, Moderate (4-6) Naloxone HCl 0.1 mg 12/11/20 10:00 Naloxone 0.4 Mg/1 Ml Inj IV Q2MIN PRN Res Rate </= 8 or 02 SAT < 92% Ondansetron HCl 4 mg 12/11/20 10:00 12/11/20 12:40 Ondansetron 4 Mg/2 Ml Inj IV 4 mg Q4H PRN Administration Nausea And Vomiting Sodium Chloride 10 ml 12/11/20 10:00 12/12/20 09:31 Sodium Chloride 0.9% 10 Ml Flush Syringe IV 10 ml BID ERAN Administration Sodium Chloride 10 ml 12/11/20 10:00 Sodium Chloride 0.9% 10 Ml Flush Syringe IV PRN PRN LINE FLUSH
[2020-12-12] MEDS: ACETAMINOPHEN 325 MG TAB PO PRN ×2 (14:18→21:48)
--- NOTE | 2020-12-12 14:45 | Anesthesia Consultation ---
Anesthesia Consult and Med Hx Date of service: 12/12/20 - Airway Anesthetic Teeth Evaluation: Good ROM Head & Neck: Adequate Mental/Hyoid Distance: Adequate Mallampati Class: Class I Intubation Access Assessment: Probably Good - Pulmonary Exam CTA: Yes - Pre-Operative Health Status ASA Pre-Surgery Classification: ASA2 Proposed Anesthetic Plan: General - Pulmonary Hx Smoking: Yes (1/4 pack per day) Hx Asthma: No COPD: No Hx Sleep Apnea: No - Cardiovascular System Hx Hypertension: No Hx Coronary Artery Disease: No Hx Heart Attack/AMI: No Hx Valvular Heart Disease: No Hx Heart Murmur: No - Central Nervous System Hx Neuromuscular Disorder: No Hx Seizures: No Hx Psychiatric Problems: No - Gastrointestinal Hx Gastroesophageal Reflux Disease: No (Gall stone pancreatitis.) - Endocrine Hx Renal Disease: No Hx Liver Disease: No Hx Insulin Dependent Diabetes: No Hx Non-Insulin Dependent Diabetes: No Hx Thyroid Disease: No - Hematic Hx Anemia: No - Other Systems Hx Alcohol Use: Yes (On weekends) Hx Substance Use: No Hx Obesity: Yes (32.7kg) - Additional Comments Anesthesia Medical History Comments: Lipase level still elevated but has declined from 2544 to 1531. Surgery dependendent on further decrease to normal value. To be re-evaluated prior to surgery on Tuesday morning by Dr. Huitron.
[2020-12-12] MEDS: MORPHINE 2 MG/1 ML INJ IV PRN (21:47)
[2020-12-13] MEDS: ACETAMINOPHEN 325 MG TAB PO PRN ×2 (03:38→10:21)
[2020-12-13] MEDS: HYDROmorphone 1 MG/1 ML INJ IV PRN ×3 (03:39→10:15)
[2020-12-13] MEDS: METOCLOPRAMIDE 10 MG/2 ML INJ IV SCH ×3 (06:36→21:14)
[2020-12-13] MEDS: SODIUM CHLORIDE 0.9% 1000 ML 1,000 ML IV SCH (06:37)
[2020-12-13 07:56] LABS: Alanine Aminotransferase 184 units/L (7-56); Albumin 3.3 g/dL (3.9-5); BUN/Creatinine Ratio 13; Blood Urea Nitrogen 10 mg/dL (9-20); Calcium 8.2 mg/dL (8.4-10.2); Hemolysis Index 12
[2020-12-13] MEDS ORDERED: SODIUM CHLORIDE 0.9% 1000 ML 2,000 ML IV ONE (08:30)
[2020-12-13] MEDS: ONDANSETRON 4 MG/2 ML INJ IV PRN (10:15)
--- NOTE | 2020-12-13 10:33 | Event Note ---
Date: 12/13/20 Pt chart reviewed. VSS. Labs: 1. Total bilirubin: 1.5->1.3->1.5 2. AST: 226 ->70 -> 32 3. ALT: 584 ->345 ->184 4. alk phos: 160 ->120 ->87 5. lipase 2544 -> 1531 -> 373 Pt states he feels well. No complaints. Has been NPO since MN on IVF. Will proceed with cholecystectomy today. Pt updated and will update his family. Discussed with patient's RN.
[2020-12-13] MEDS ORDERED: ROCURONIUM 50 MG/5 ML INJ IV ONE (11:00)
[2020-12-13] MEDS ORDERED: propofoL 200 MG/20 ML VIAL IV ONE (11:00)
[2020-12-13] MEDS ORDERED: KETOROLAC 30 MG/1 ML INJ ONE (11:00)
[2020-12-13] MEDS ORDERED: ONDANSETRON 4 MG/2 ML INJ ONE (11:00)
[2020-12-13] MEDS ORDERED: LIDOCAINE MPF (2%) 20 MG/1 ML VIAL 5 ML ONE (11:00)
[2020-12-13] MEDS ORDERED: HYDROmorphone 1 MG/1 ML INJ ONE (11:00)
[2020-12-13] MEDS ORDERED: dexAMETHasone 20 MG/5 ML VIAL ONE (11:00)
[2020-12-13] MEDS ORDERED: BUPIVACAINE/PF (0.5%) 5 MG/1 ML 30 ML VIAL INFILTRATI ONE (11:14)
[2020-12-13] MEDS ORDERED: LIDOCAINE (1%) 10 MG/1 ML VIAL 20 ML MDV ONE (11:14)
--- NOTE | 2020-12-13 11:36 | Anesthesia Day of Surgery ---
Anesthesia Day of Surgery - Day of Surgery Patient Examined: Yes Patient H&P Reviewed: Yes Patient is NPO: Yes Beta Blockers: No Cardiac Clearance: No Pulmonary Clearance: No
[2020-12-13] MEDS ORDERED: LACTATED RINGERS 1,000 ML ONE ×3 (11:40→13:39)
[2020-12-13] MEDS ORDERED: ATROPINE 0.4 MG/1 ML INJ ONE (11:40)
[2020-12-13] MEDS ORDERED: ceFAZolin 1 GM VIAL ONE ×2 (12:12)
[2020-12-13] MEDS ORDERED: SODIUM CHLORIDE 0.9% IRRIG SOLN 3000 ML IR ONE (12:35)
[2020-12-13] MEDS ORDERED: BUPIVACAINE/PF (0.5%) 5 MG/1 ML 10 ML VIAL INFILTRATI ONE (12:36)
[2020-12-13] MEDS ORDERED: LIDOCAINE (1%) 10 MG/1 ML VIAL 20 ML MDV INFILTRATI ONE (12:36)
--- NOTE | 2020-12-13 13:18 | Progress Note ---
Assessment and Plan Assessment and plan: Patient is a 25-year-old male with no significant past medical history except for toe surgery in the past who presents to the ED with complaint of abdominal pain that has been ongoing for about 3 days starts in the epigastric area down to the umbilical area and radiates to the back. The patient states that for the past 3 days this has been waxing and waning but all of a sudden last night became persistent associated with nausea vomiting but no diarrhea. He was unable to keep any food down. While he states that he drinks socially beer his last drink was about a week ago according to him where he had 3-4 bottles. In the ER he was noted to have a lipase of over 2000 with a clinical diagnosis of pancreatitis were asked to admit the patient for further evaluation. Pain is rated a 7/10 in intensity Imaging study of ultrasound obtained shows cholelithiasis with inflamed pancreas. Dilated common bile duct. 12/12: Surgeon's input noted patient undergoing cholecystectomy today. MRI of the abdomen reviewed no choledocholithiasis noted. Continue n.p.o. until surgery continue pain control and hydration. Plan discussed with the patient verbalized understanding 12/13: Patient clinically stable, Lipase improved, but overnight with some fever, I believe this is likely due to the pancreatitis rather than infectious, nevertheless with treat for possible sepsis. Start on abx, check clutures and hydrate. He is for cholecystectomy today Spesis- likely due to Cholecysistis. Abdominal pain Acute pancreatitis likely causing above could be gallstone Cholelithiasis Transaminitis Hyperbilirubinemia Plan Admit patient to inpatient care [facility] protocol Pain control with Dilaudid patient has received multiple doses in the ED already. Antiemetics Keep n.p.o. If patient becomes hungry wants to eat may try clear liquid diet. Reassess pain Surgical consult. EtOH use counseling considering social use but bottle count in my opinion is excess DVT and GI prophylaxis History Interval history: Patient seen and examined this morning complains of mild abdominal pain and being hungry otherwise no new complaints. Had fever overnight Hospitalist Physical - Physical exam Narrative exam: VITAL SIGNS: Reviewed. GENERAL: The patient appears normally developed, Vital signs as documented. HEAD: No signs of head trauma. EYES: Pupils are equal. Extraocular motions intact. EARS: Hearing grossly intact. MOUTH: Oropharynx is normal. NECK: No adenopathy, no JVD. CHEST: Chest with clear breath sounds bilaterally. No wheezes, rales, or rhonchi. CARDIAC: Regular rate and rhythm. S1 and S2, without murmurs, gallops, or rubs. VASCULAR: No Edema. Peripheral pulses normal and equal in all extremities. ABDOMEN: Soft, tender in the epigastric area and non distended. No rebound or guarding, and no masses palpated. Bowel Sounds normal. MUSCULOSKELETAL: Good range of motion of all major joints. Extremities without clubbing, cyanosis or edema. NEUROLOGIC EXAM: Alert and oriented x 3 No focal sensory or strength deficits. Speech normal. Follows commands. PSYCHIATRIC: Mood normal. SKIN: detail exam as documented in skin assessment - Constitutional Vitals: Temp Pulse Resp BP Pulse Ox 100.8 F H 110 H 19 126/67 95 12/13/20 11:00 12/13/20 11:00 12/13/20 11:00 12/13/20 11:00 12/13/20 10:00 Results - Labs CBC & Chem 7: 12/12/20 05:11 12/13/20 06:58 Labs: Laboratory Last Values WBC 15.3 K/mm3 (4.5-11.0) H 12/12/20 05:11 RBC 4.74 M/mm3 (3.65-5.03) 12/12/20 05:11 Hgb 14.9 gm/dl (11.8-15.2) 12/12/20 05:11 Hct 44.6 % (35.5-45.6) 12/12/20 05:11 MCV 94 fl (84-94) 12/12/20 05:11 MCH 31 pg (28-32) 12/12/20 05:11 MCHC 33 % (32-34) 12/12/20 05:11 RDW 12.9 % (13.2-15.2) L 12/12/20 05:11 Plt Count 198 K/mm3 (140-440) 12/12/20 05:11 Lymph % (Auto) 10.6 % (13.4-35.0) L 12/12/20 05:11 [place] % (Auto) 6.3 % (0.0-7.3) 12/12/20 05:11 Eos % (Auto) 0.0 % (0.0-4.3) 12/12/20 05:11 Baso % (Auto) 0.3 % (0.0-1.8) 12/12/20 05:11 Lymph # (Auto) 1.6 K/mm3 (1.2-5.4) 12/12/20 05:11 [place] # (Auto) 1.0 K/mm3 (0.0-0.8) H 12/12/20 05:11 Eos # (Auto) 0.0 K/mm3 (0.0-0.4) 12/12/20 05:11 Baso # (Auto) 0.0 K/mm3 (0.0-0.1) 12/12/20 05:11 Add Manual Diff Complete 12/11/20 04:32 Total Counted 100 12/11/20 04:32 Seg Neutrophils % 82.8 % (40.0-70.0) H 12/12/20 05:11 Seg Neuts % (Manual) 41.0 % (40.0-70.0) 12/11/20 04:32 Lymphocytes % (Manual) 54.0 % (13.4-35.0) H 12/11/20 04:32 Monocytes % (Manual) 4.0 % (0.0-7.3) 12/11/20 04:32 Eosinophils % (Manual) 1.0 % (0.0-4.3) 12/11/20 04:32 Nucleated RBC % Not Reportable 12/11/20 04:32 Seg Neutrophils # 12.7 K/mm3 (1.8-7.7) H 12/12/20 05:11 Seg Neutrophils # Man 5.2 K/mm3 (1.8-7.7) 12/11/20 04:32 Band Neutrophils # 0.0 K/mm3 12/11/20 04:32 Lymphocytes # (Manual) 6.9 K/mm3 (1.2-5.4) H 12/11/20 04:32 Abs React Lymphs (Man) 0.0 K/mm3 12/11/20 04:32 Monocytes # (Manual) 0.5 K/mm3 (0.0-0.8) 12/11/20 04:32 Eosinophils # (Manual) 0.1 K/mm3 (0.0-0.4) 12/11/20 04:32 Basophils # (Manual) 0.0 K/mm3 (0.0-0.1) 12/11/20 04:32 Metamyelocytes # 0.0 K/mm3 12/11/20 04:32 Myelocytes # 0.0 K/mm3 12/11/20 04:32 Promyelocytes # 0.0 K/mm3 12/11/20 04:32 Blast Cells # 0.0 K/mm3 12/11/20 04:32 WBC Morphology Not Reportable 12/11/20 04:32 Hypersegmented Neuts Not Reportable 12/11/20 04:32 Hyposegmented Neuts Not Reportable 12/11/20 04:32 Hypogranular Neuts Not Reportable 12/11/20 04:32 Smudge Cells Not Reportable 12/11/20 04:32 Toxic Granulation Not Reportable 12/11/20 04:32 Toxic Vacuolation Not Reportable 12/11/20 04:32 Dohle Bodies Not Reportable 12/11/20 04:32 Pelger-Huet Anomaly Not Reportable 12/11/20 04:32 Annie Rods Not Reportable 12/11/20 04:32 Platelet Estimate Consistent w auto 12/11/20 04:32 Clumped Platelets Not Reportable 12/11/20 04:32 Plt Clumps, EDTA Not Reportable 12/11/20 04:32 Large Platelets Not Reportable 12/11/20 04:32 Giant Platelets Not Reportable 12/11/20 04:32 Platelet Satelliting Not Reportable 12/11/20 04:32 Plt Morphology Comment Not Reportable 12/11/20 04:32 RBC Morphology Normal 12/11/20 04:32 Dimorphic RBCs Not Reportable 12/11/20 04:32 Polychromasia Not Reportable 12/11/20 04:32 Hypochromasia Not Reportable 12/11/20 04:32 Poikilocytosis Not Reportable 12/11/20 04:32 Anisocytosis Not Reportable 12/11/20 04:32 Microcytosis Not Reportable 12/11/20 04:32 Macrocytosis Not Reportable 12/11/20 04:32 Spherocytes Not Reportable 12/11/20 04:32 Pappenheimer Bodies Not Reportable 12/11/20 04:32 Sickle Cells Not Reportable 12/11/20 04:32 Target Cells Not Reportable 12/11/20 04:32 Tear Drop Cells Not Reportable 12/11/20 04:32 Ovalocytes Not Reportable 12/11/20 04:32 Helmet Cells Not Reportable 12/11/20 04:32 [place] Bodies Not Reportable 12/11/20 04:32 Wykoff Rings Not Reportable 12/11/20 04:32 Hemanth Cells Not Reportable 12/11/20 04:32 Bite Cells Not Reportable 12/11/20 04:32 Crenated Cell Not Reportable 12/11/20 04:32 Elliptocytes Not Reportable 12/11/20 04:32 Acanthocytes (Spur) Not Reportable 12/11/20 04:32 Rouleaux Not Reportable 12/11/20 04:32 Hemoglobin C Crystals Not Reportable 12/11/20 04:32 Schistocytes Not Reportable 12/11/20 04:32 Malaria parasites Not Reportable 12/11/20 04:32 Alex Bodies Not Reportable 12/11/20 04:32 Hem Pathologist Commnt No 12/11/20 04:32 Sodium 131 mmol/L (137-145) L 12/13/20 06:58 Potassium 3.9 mmol/L (3.6-5.0) 12/13/20 06:58 Chloride 98.8 mmol/L (98-107) 12/13/20 06:58 Carbon Dioxide 24 mmol/L (22-30) 12/13/20 06:58 Anion Gap 12 mmol/L 12/13/20 06:58 BUN 10 mg/dL (9-20) 12/13/20 06:58 Creatinine 0.8 mg/dL (0.8-1.3) 12/13/20 06:58 Estimated GFR > 60 ml/min 12/13/20 06:58 BUN/Creatinine Ratio 13 % 12/13/20 06:58 Glucose 107 mg/dL (75-100) H 12/13/20 06:58 Calcium 8.2 mg/dL (8.4-10.2) L 12/13/20 06:58 Magnesium 2.00 mg/dL (1.7-2.3) 12/11/20 10:48 Total Bilirubin 1.50 mg/dL (0.1-1.2) H 12/13/20 06:58 Direct Bilirubin 0.9 mg/dL (0-0.2) H 12/11/20 04:32 Indirect Bilirubin 0.6 mg/dL 12/11/20 04:32 AST 32 units/L (5-40) 12/13/20 06:58 ALT 184 units/L (7-56) H 12/13/20 06:58 Alkaline Phosphatase 87 units/L (35-129) 12/13/20 06:58 Ammonia 50.0 umol/L (25-60) 12/11/20 10:48 Total Protein 6.3 g/dL (6.3-8.2) 12/13/20 06:58 Albumin 3.3 g/dL (3.9-5) L 12/13/20 06:58 Albumin/Globulin Ratio 1.1 % 12/13/20 06:58 Lipase 373 units/L (13-60) H 12/13/20 06:58 Quintana/IV: Voiding Method Toilet IV Catheter Type [Left INT / Saline Lock Antecubital] Active Medications - Current Medications Current Medications: Generic Name Dose Route Start Last Admin Trade Name Freq PRN Reason Stop Dose Admin Acetaminophen 650 mg 12/11/20 10:00 12/13/20 10:21 Acetaminophen 325 Mg Tab PO 650 mg Q4H PRN Administration Pain MILD(1-3)/Fever >100.5/HANKINS Albuterol 2.5 mg 12/11/20 12:00 Albuterol 2.5 Mg/3 Ml Nebu IH Q4HRT PRN Shortness Of Breath Chlordiazepoxide HCl 50 mg 12/11/20 10:00 Chlordiazepoxide 25 Mg Cap PO Q1H PRN CIWA-Ar 8-15 Hydromorphone HCl 0.5 mg 12/11/20 11:17 12/13/20 10:15 Hydromorphone 1 Mg/1 Ml Inj IV 0.5 mg Q3H PRN Administration Pain , Severe (7-10) Sodium Chloride 1,000 mls @ 150 mls/hr 12/12/20 09:30 12/13/20 06:37 Nacl 0.9% 1000 Ml IV 150 mls/hr DIRECT ERAN Administration Piperacillin Sod/Tazobactam Sod 4.5 gm in 100 mls @ 200 mls/hr 12/13/20 09:00 Zosyn/Ns 4.5gm/100ml IV Q8H ERAN Protocol Metoclopramide HCl 10 mg 12/11/20 14:35 12/13/20 06:36 Metoclopramide 10 Mg/2 Ml Inj IV 10 mg Q8H ERAN Administration Morphine Sulfate 2 mg 12/11/20 10:00 12/12/20 21:47 Morphine 2 Mg/1 Ml Inj IV 2 mg Q4H PRN Administration Pain, Moderate (4-6) Naloxone HCl 0.1 mg 12/11/20 10:00 Naloxone 0.4 Mg/1 Ml Inj IV Q2MIN PRN Res Rate </= 8 or 02 SAT < 92% Ondansetron HCl 4 mg 12/11/20 10:00 12/13/20 10:15 Ondansetron 4 Mg/2 Ml Inj IV 4 mg Q4H PRN Administration Nausea And Vomiting Sodium Chloride 10 ml 12/11/20 10:00 12/13/20 10:14 Sodium Chloride 0.9% 10 Ml Flush Syringe IV 10 ml BID ERAN Administration Sodium Chloride 10 ml 12/11/20 10:00 Sodium Chloride 0.9% 10 Ml Flush Syringe IV PRN PRN LINE FLUSH
[2020-12-13] MEDS ORDERED: GLYCOPYRROLATE 0.4 MG/2 ML INJ ONE (13:38)
[2020-12-13] MEDS ORDERED: NEOSTIGMINE 10MG/10 ML INJ MDV ONE (13:38)
--- NOTE | 2020-12-13 13:39 | Post Operative Note ---
Pre-op diagnosis: gallstone pancreatitis Post-op diagnosis: other (gallstone pancreatitis) Findings: Inflamed gallbladder with chronic wall thickening Partially intrahepatic gallbladder at the dome Moderate ascites Procedure: laparoscopic cholecystectomy Anesthesia: RIMA, local Surgeon: JENNIFER CABAN Paper Machine Operator: ROSIE MOREIRA Estimated blood loss: minimal Pathology: list (gallbladder) Specimen disposition: to lab Condition: stable Disposition: PACU
--- NOTE | 2020-12-13 14:32 | Operative Report ---
Operative Report Operative Report: Date: 12/13/20 13:38 Pre-op diagnosis: gallstone pancreatitis Post-op diagnosis: other (gallstone pancreatitis) Findings: Inflamed gallbladder with chronic wall thickening Partially intrahepatic gallbladder at the dome Moderate ascites Procedure: laparoscopic cholecystectomy Anesthesia: RIMA local Surgeon: JENNIFER CABAN Packer Insulation: ROSIE MOREIRA Estimated blood loss: minimal Pathology: list (gallbladder) Specimen disposition: to lab Condition: stable Disposition: PACU HPI an indication: 25-year-old male who presented to the hospital with complaints of epigastric abdominal pain radiating to the rest of his abdomen. He was found to have pancreatitis secondary to gallstones on imaging. MRCP was negative for choledocholithiasis. Patient was treated with bowel rest, aggressive IV fluid resuscitation until his lipase improved. It was recommended that he undergo cholecystectomy this admission. All risk, benefits, alternatives to surgery discussed with patient questions answered. Consent was obtained. Procedure in detail: The patient was identified in the preoperative area and taken back to the operating room, placed on the operating room table in supine position. After anesthesia was induced, the abdomen was prepped and draped in usual sterile fashion and timeout was performed. Local anesthetic was infiltrated into all of the skin incision sites. Using an 11 blade a supraumbilical incision was made and through this a Veress needle was used to insufflate the abdomen. The position of the veress needle was confirmed with the saline drop test and the abdomen was then insufflated to 15 mmHg. The veress needle was then removed and a 5 mm trocar placed using Optiview trocar. The abdomen was then inspected and there was no underlying injury to any of the abdominal contents. There was a moderate amount of ascites present in the abdomen. An additional 12 mm subxyphoid port, and 2, 5mm RUQ ports were then placed under direct visualization. The patient was then placed into reverse Trendelberg and tilted to the left. The gallbladder was visualized and was contracted with a chronically thickened wall and was partially intrahepatic at the dome. The gallbladder was grasped and retracted cephalad. The cystic duct and artery were then carefully dissected and the critical view obtained, and the cystic duct and artery were the only two structures seen entering the gallbladder. Three clips were then placed on the proximal aspect of the cystic duct and one clip distally, and 2 clips on the cystic artery proximally and one distal. The cystic duct and cystic artery were then transected in between the clips. The gallbladder was dissected off the liver bed using hook electrocautery. The gallbladder was placed into a Endo Catch bag and removed from the abdomen via the 12mm port. The gallbladder fossa was then inspected. Bleeding was controlled using electrocautery and Surgicel until hemostasis was ensured. And there was no identifiable bleeding or bile leakage. The clips on the cystic duct and artery were visualized and intact. The patient was then placed into neutral position and Morison's pouch was irrigated until the irrig ant returned clear. The 12 mm port fascia was closed with 2, interrupted 0 Vicryl sutures using the Delvis Freeman device. The remaining ports were removed under direct visualization. Skin incisions were closed with 4-0 Monocryl subcuticular stitches and skin glue. All skin incisions were once again infiltrated with local anesthetic. At the end case all sponge, instrument, sharp counts were correct 2. The patient was awoken from anesthesia, extubated, taken to PACU in stable condition.
[2020-12-13] MEDS: oxyCODONE /ACETAMINOPHEN 5-325MG TAB PO PRN ×2 (14:56→21:12)
--- NOTE | 2020-12-13 15:23 | Post Anesthesia Evaluation ---
- Post Anesthesia Evaluation Patient Participated: Yes Airway Patent: Yes Stable Respiratory Function: Yes Nausea/Vomiting: No Temp > 96.8F: Yes Pain Manageable: Yes Adequeate Hydration: Yes Anesthesia Complications: No Block Receding Appropriately: Not Applicable Patient on Ventilator: No
[2020-12-13] MEDS: PIPERACIL/TAZOBACTA 4.5/NS 100 4.5 GM/100 ML VIAL IV SCH ×2 (16:27→16:37)
[2020-12-14] MEDS: METOCLOPRAMIDE 10 MG/2 ML INJ IV SCH ×5 (00:30→21:05)
[2020-12-14] MEDS: diphenhydrAMINE 25 MG CAP PO PRN (00:30)
[2020-12-14] MEDS: SODIUM CHLORIDE 0.9% 1000 ML 1,000 ML IV SCH (00:54)
[2020-12-14] MEDS: PIPERACIL/TAZOBACTA 4.5/NS 100 4.5 GM/100 ML VIAL IV SCH ×3 (01:55→21:24)
[2020-12-14] MEDS: chlordiazePOXIDE 25 MG CAP PO PRN ×2 (02:04→10:40)
[2020-12-14] MEDS: HYDROmorphone 1 MG/1 ML INJ IV PRN (06:05)
[2020-12-14 08:50] LABS: Hematocrit 37.8 % (35.5-45.6); Hemoglobin 12.7 gm/dl (11.8-15.2); Mean Corpuscular HGB Conc 34 % (32-34); Mean Corpuscular Volume 96 fl (84-94); Platelet Count 182 K/mm3 (140-440); Red Blood Count 3.93 M/mm3 (3.65-5.03); Red Cell Distribution Width 12.5 % (13.2-15.2)
[2020-12-14 09:19] LABS: Alanine Aminotransferase 161 units/L (7-56); Albumin 3.6 g/dL (3.9-5); BUN/Creatinine Ratio 10; Blood Urea Nitrogen 8 mg/dL (9-20); Calcium 8.6 mg/dL (8.4-10.2); Hemolysis Index 10
[2020-12-14] MEDS: oxyCODONE /ACETAMINOPHEN 5-325MG TAB PO PRN ×2 (10:35→21:04)
[2020-12-14] MEDS: ONDANSETRON 4 MG/2 ML INJ IV PRN (10:35)
--- NOTE | 2020-12-14 12:19 | Progress Note ---
Assessment and Plan Assessment and plan: Patient is a 25-year-old male with no significant past medical history except for toe surgery in the past who presents to the ED with complaint of abdominal pain that has been ongoing for about 3 days starts in the epigastric area down to the umbilical area and radiates to the back. The patient states that for the past 3 days this has been waxing and waning but all of a sudden last night became persistent associated with nausea vomiting but no diarrhea. He was unable to keep any food down. While he states that he drinks socially beer his last drink was about a week ago according to him where he had 3-4 bottles. In the ER he was noted to have a lipase of over 2000 with a clinical diagnosis of pancreatitis were asked to admit the patient for further evaluation. Pain is rated a 7/10 in intensity Imaging study of ultrasound obtained shows cholelithiasis with inflamed pancreas. Dilated common bile duct. 12/12: Surgeon's input noted patient undergoing cholecystectomy today. MRI of the abdomen reviewed no choledocholithiasis noted. Continue n.p.o. until surgery continue pain control and hydration. Plan discussed with the patient verbalized understanding 12/13: Patient clinically stable, Lipase improved, but overnight with some fever, I believe this is likely due to the pancreatitis rather than infectious, nevertheless with treat for possible sepsis. Start on abx, check clutures and hydrate. He is for cholecystectomy today 12/14: Anxiety, Insomnia and fever. Doubt sepsis may be due to inflammation. Continue abx, obtain cultures, start on Trazadone tonight, one time ativan. Disc ussed with patient and nursing staff. Spesis- likely due to Cholecysistis. Abdominal pain Acute pancreatitis likely causing above could be gallstone Cholelithiasis Transaminitis Hyperbilirubinemia Plan Admit patient to inpatient care [facility] protocol Pain control with Dilaudid patient has received multiple doses in the ED already. Antiemetics Keep n.p.o. If patient becomes hungry wants to eat may try clear liquid diet. Reassess pain Surgical consult. EtOH use counseling considering social use but bottle count in my opinion is excess DVT and GI prophylaxis History Interval history: Patient seen and examined, still with intermittent fever, also reported insomnia and anxiety Hospitalist Physical - Physical exam Narrative exam: VITAL SIGNS: Reviewed. GENERAL: The patient appears normally developed, Vital signs as documented. HEAD: No signs of head trauma. EYES: Pupils are equal. Extraocular motions intact. EARS: Hearing grossly intact. MOUTH: Oropharynx is normal. NECK: No adenopathy, no JVD. CHEST: Chest with clear breath sounds bilaterally. No wheezes, rales, or rhonchi. CARDIAC: Regular rate and rhythm. S1 and S2, without murmurs, gallops, or rubs. VASCULAR: No Edema. Peripheral pulses normal and equal in all extremities. ABDOMEN: Soft, tender at surgical site, and non distended. No rebound or guarding, and no masses palpated. Bowel Sounds normal. MUSCULOSKELETAL: Good range of motion of all major joints. Extremities without clubbing, cyanosis or edema. NEUROLOGIC EXAM: Alert and oriented x 3 No focal sensory or strength deficits . Speech normal. Follows commands. PSYCHIATRIC: Mood normal. SKIN: detail exam as documented in skin assessment - Constitutional Vitals: Temp Pulse Resp BP Pulse Ox 99.7 F H 89 18 149/90 95 12/14/20 11:00 12/14/20 11:00 12/14/20 11:00 12/14/20 11:00 12/14/20 11:00 Results - Labs CBC & Chem 7: 12/14/20 07:46 12/14/20 07:46 Labs: Laboratory Last Values WBC 12.7 K/mm3 (4.5-11.0) H 12/14/20 07:46 RBC 3.93 M/mm3 (3.65-5.03) 12/14/20 07:46 Hgb 12.7 gm/dl (11.8-15.2) 12/14/20 07:46 Hct 37.8 % (35.5-45.6) D 12/14/20 07:46 MCV 96 fl (84-94) H 12/14/20 07:46 MCH 32 pg (28-32) 12/14/20 07:46 MCHC 34 % (32-34) 12/14/20 07:46 RDW 12.5 % (13.2-15.2) L 12/14/20 07:46 Plt Count 182 K/mm3 (140-440) 12/14/20 07:46 Lymph % (Auto) 10.6 % (13.4-35.0) L 12/12/20 05:11 [place] % (Auto) 6.3 % (0.0-7.3) 12/12/20 05:11 Eos % (Auto) 0.0 % (0.0-4.3) 12/12/20 05:11 Baso % (Auto) 0.3 % (0.0-1.8) 12/12/20 05:11 Lymph # (Auto) 1.6 K/mm3 (1.2-5.4) 12/12/20 05:11 [place] # (Auto) 1.0 K/mm3 (0.0-0.8) H 12/12/20 05:11 Eos # (Auto) 0.0 K/mm3 (0.0-0.4) 12/12/20 05:11 Baso # (Auto) 0.0 K/mm3 (0.0-0.1) 12/12/20 05:11 Add Manual Diff Complete 12/11/20 04:32 Total Counted 100 12/11/20 04:32 Seg Neutrophils % 82.8 % (40.0-70.0) H 12/12/20 05:11 Seg Neuts % (Manual) 41.0 % (40.0-70.0) 12/11/20 04:32 Lymphocytes % (Manual) 54.0 % (13.4-35.0) H 12/11/20 04:32 Monocytes % (Manual) 4.0 % (0.0-7.3) 12/11/20 04:32 Eosinophils % (Manual) 1.0 % (0.0-4.3) 12/11/20 04:32 Nucleated RBC % Not Reportable 12/11/20 04:32 Seg Neutrophils # 12.7 K/mm3 (1.8-7.7) H 12/12/20 05:11 Seg Neutrophils # Man 5.2 K/mm3 (1.8-7.7) 12/11/20 04:32 Band Neutrophils # 0.0 K/mm3 12/11/20 04:32 Lymphocytes # (Manual) 6.9 K/mm3 (1.2-5.4) H 12/11/20 04:32 Abs React Lymphs (Man) 0.0 K/mm3 12/11/20 04:32 Monocytes # (Manual) 0.5 K/mm3 (0.0-0.8) 12/11/20 04:32 Eosinophils # (Manual) 0.1 K/mm3 (0.0-0.4) 12/11/20 04:32 Basophils # (Manual) 0.0 K/mm3 (0.0-0.1) 12/11/20 04:32 Metamyelocytes # 0.0 K/mm3 12/11/20 04:32 Myelocytes # 0.0 K/mm3 12/11/20 04:32 Promyelocytes # 0.0 K/mm3 12/11/20 04:32 Blast Cells # 0.0 K/mm3 12/11/20 04:32 WBC Morphology Not Reportable 12/11/20 04:32 Hypersegmented Neuts Not Reportable 12/11/20 04:32 Hyposegmented Neuts Not Reportable 12/11/20 04:32 Hypogranular Neuts Not Reportable 12/11/20 04:32 Smudge Cells Not Reportable 12/11/20 04:32 Toxic Granulation Not Reportable 12/11/20 04:32 Toxic Vacuolation Not Reportable 12/11/20 04:32 Dohle Bodies Not Reportable 12/11/20 04:32 Pelger-Huet Anomaly Not Reportable 12/11/20 04:32 Annie Rods Not Reportable 12/11/20 04:32 Platelet Estimate Consistent w auto 12/11/20 04:32 Clumped Platelets Not Reportable 12/11/20 04:32 Plt Clumps, EDTA Not Reportable 12/11/20 04:32 Large Platelets Not Reportable 12/11/20 04:32 Giant Platelets Not Reportable 12/11/20 04:32 Platelet Satelliting Not Reportable 12/11/20 04:32 Plt Morphology Comment Not Reportable 12/11/20 04:32 RBC Morphology Normal 12/11/20 04:32 Dimorphic RBCs Not Reportable 12/11/20 04:32 Polychromasia Not Reportable 12/11/20 04:32 Hypochromasia Not Reportable 12/11/20 04:32 Poikilocytosis Not Reportable 12/11/20 04:32 Anisocytosis Not Reportable 12/11/20 04:32 Microcytosis Not Reportable 12/11/20 04:32 Macrocytosis Not Reportable 12/11/20 04:32 Spherocytes Not Reportable 12/11/20 04:32 Pappenheimer Bodies Not Reportable 12/11/20 04:32 Sickle Cells Not Reportable 12/11/20 04:32 Target Cells Not Reportable 12/11/20 04:32 Tear Drop Cells Not Reportable 12/11/20 04:32 Ovalocytes Not Reportable 12/11/20 04:32 Helmet Cells Not Reportable 12/11/20 04:32 [place] Bodies Not Reportable 12/11/20 04:32 [place] Rings Not Reportable 12/11/20 04:32 Hemanth Cells Not Reportable 12/11/20 04:32 Bite Cells Not Reportable 12/11/20 04:32 Crenated Cell Not Reportable 12/11/20 04:32 Elliptocytes Not Reportable 12/11/20 04:32 Acanthocytes (Spur) Not Reportable 12/11/20 04:32 Rouleaux Not Reportable 12/11/20 04:32 Hemoglobin C Crystals Not Reportable 12/11/20 04:32 Schistocytes Not Reportable 12/11/20 04:32 Malaria parasites Not Reportable 12/11/20 04:32 Alex Bodies Not Reportable 12/11/20 04:32 Hem Pathologist Commnt No 12/11/20 04:32 Sodium 137 mmol/L (137-145) 12/14/20 07:46 Potassium 3.7 mmol/L (3.6-5.0) 12/14/20 07:46 Chloride 102.7 mmol/L (98-107) 12/14/20 07:46 Carbon Dioxide 27 mmol/L (22-30) 12/14/20 07:46 Anion Gap 11 mmol/L 12/14/20 07:46 BUN 8 mg/dL (9-20) L 12/14/20 07:46 Creatinine 0.8 mg/dL (0.8-1.3) 12/14/20 07:46 Estimated GFR > 60 ml/min 12/14/20 07:46 BUN/Creatinine Ratio 10 % 12/14/20 07:46 Glucose 117 mg/dL (75-100) H 12/14/20 07:46 Calcium 8.6 mg/dL (8.4-10.2) 12/14/20 07:46 Magnesium 2.00 mg/dL (1.7-2.3) 12/11/20 10:48 Total Bilirubin 0.70 mg/dL (0.1-1.2) 12/14/20 07:46 Direct Bilirubin 0.9 mg/dL (0-0.2) H 12/11/20 04:32 Indirect Bilirubin 0.6 mg/dL 12/11/20 04:32 AST 61 units/L (5-40) H 12/14/20 07:46 ALT 161 units/L (7-56) H 12/14/20 07:46 Alkaline Phosphatase 86 units/L (35-129) 12/14/20 07:46 Ammonia 50.0 umol/L (25-60) 12/11/20 10:48 Total Protein 7.1 g/dL (6.3-8.2) 12/14/20 07:46 Albumin 3.6 g/dL (3.9-5) L 12/14/20 07:46 Albumin/Globulin Ratio 1.0 % 12/14/20 07:46 Lipase 106 units/L (13-60) H 12/14/20 07:46 Quintana/IV: Voiding Method Toilet IV Catheter Type [Left INT / Saline Lock Antecubital] Active Medications - Current Medications Current Medications: Generic Name Dose Route Start Last Admin Trade Name Freq PRN Reason Stop Dose Admin Acetaminophen 650 mg 12/11/20 10:00 12/13/20 10:21 Acetaminophen 325 Mg Tab PO 650 mg Q4H PRN Administration Pain MILD(1-3)/Fever >100.5/HANKINS Albuterol 2.5 mg 12/11/20 12:00 Albuterol 2.5 Mg/3 Ml Nebu IH Q4HRT PRN Shortness Of Breath Chlordiazepoxide HCl 50 mg 12/11/20 10:00 12/14/20 10:40 Chlordiazepoxide 25 Mg Cap PO 50 mg Q1H PRN Administration CIWA-Ar 8-15 Diphenhydramine HCl 25 mg 12/14/20 00:12 12/14/20 00:30 Diphenhydramine 25 Mg Cap PO 25 mg QHS PRN Administration Sleep Piperacillin Sod/Tazobactam Sod 4.5 gm in 100 mls @ 200 mls/hr 12/13/20 09:00 12/14/20 10:35 Zosyn/Ns 4.5gm/100ml IV 200 mls/hr Q8H ERAN Administration Protocol Sodium Chloride 1,000 mls @ 75 mls/hr 12/14/20 12:00 Nacl 0.45% 1000 Ml IV DIRECT ERAN Metoclopramide HCl 10 mg 12/11/20 14:35 12/14/20 06:05 Metoclopramide 10 Mg/2 Ml Inj IV 10 mg Q8H ERAN Administration Naloxone HCl 0.1 mg 12/11/20 10:00 Naloxone 0.4 Mg/1 Ml Inj IV Q2MIN PRN Res Rate </= 8 or 02 SAT < 92% Ondansetron HCl 4 mg 12/11/20 10:00 12/14/20 10:35 Ondansetron 4 Mg/2 Ml Inj IV 4 mg Q4H PRN Administration Nausea And Vomiting Oxycodone/Acetaminophen 2 tab 12/13/20 14:00 12/14/20 10:35 Oxycodone /Acetaminophen 5-325mg Tab PO 2 tab Q6H PRN Administration Pain, Moderate (4-6) Sodium Chloride 10 ml 12/11/20 10:00 12/14/20 10:35 Sodium Chloride 0.9% 10 Ml Flush Syringe IV 10 ml BID ERAN Administration Sodium Chloride 10 ml 12/11/20 10:00 12/14/20 06:08 Sodium Chloride 0.9% 10 Ml Flush Syringe IV 10 ml PRN PRN Administration LINE FLUSH
[2020-12-14] MEDS: SODIUM CHLORIDE 0.45% 1000 ML 1,000 ML IV SCH (12:29)
[2020-12-14] MEDS ORDERED: diphenhydrAMINE 50 MG/ML VIAL IV PRN (12:49)
--- NOTE | 2020-12-14 12:51 | Post Anesthesia Evaluation ---
- Post Anesthesia Evaluation Patient Participated: Yes Airway Patent: Yes Stable Respiratory Function: Yes Nausea/Vomiting: No (tolerating regular diet) Temp > 96.8F: Yes Pain Manageable: Yes Adequeate Hydration: Yes Anesthesia Complications: No Block Receding Appropriately: Not Applicable Other Comments: POD1 s/p lap joel. Patient's main complaint is difficulty sleeping. No anesthetic complications or concerns.
--- NOTE | 2020-12-14 13:37 | Progress Note ---
Assessment and Plan POD#1 s/p lap joel for cholelithiasis and gallstone pancreatitis. Pt had a low grade fever this morning but is stable. Will allow PO, change to PO pain meds, and if is afebrile for next 24 hours ok to d/c tomorrow. Subjective Date of service: 12/14/20 Patient Reports: Positive: no new complaints, feels better, pain is less, tolerating liquids well (no acute events overnight. Pt says he feels pretty good but cannot sleep.) Objective Vital Signs - 12hr 12/14/20 12/14/20 12/14/20 03:39 07:34 08:35 Temperature 99.9 F H 101.1 F H Pulse Rate 91 H Respiratory 19 18 Rate Blood Pressure 131/79 132/81 O2 Sat by Pulse 90 99 Oximetry 12/14/20 12/14/20 10:00 11:00 Temperature 99.7 F H Pulse Rate 98 H 89 Respiratory 18 Rate Blood Pressure 149/90 O2 Sat by Pulse 95 Oximetry - General physical appearance well developed, no distress, no pain - Respiratory normal expansion, normal respiratory effort - Abdomen soft, not distended, other (incisions c/d/i, appropriatley tender to palpation) - Labs 12/14/20 07:46 12/14/20 07:46 Diabetes panel 12/14/20 Range/Units 07:46 Sodium 137 (137-145) mmol/L Potassium 3.7 (3.6-5.0) mmol/L Chloride 102.7 (98-107) mmol/L Carbon Dioxide 27 (22-30) mmol/L BUN 8 L (9-20) mg/dL Creatinine 0.8 (0.8-1.3) mg/dL Glucose 117 H (75-100) mg/dL Calcium 8.6 (8.4-10.2) mg/dL AST 61 H (5-40) units/L ALT 161 H (7-56) units/L Alkaline Phosphatase 86 (35-129) units/L Total Protein 7.1 (6.3-8.2) g/dL Albumin 3.6 L (3.9-5) g/dL Calcium panel 12/14/20 Range/Units 07:46 Calcium 8.6 (8.4-10.2) mg/dL Albumin 3.6 L (3.9-5) g/dL Pituitary panel 12/14/20 Range/Units 07:46 Sodium 137 (137-145) mmol/L Potassium 3.7 (3.6-5.0) mmol/L Chloride 102.7 (98-107) mmol/L Carbon Dioxide 27 (22-30) mmol/L BUN 8 L (9-20) mg/dL Creatinine 0.8 (0.8-1.3) mg/dL Glucose 117 H (75-100) mg/dL Calcium 8.6 (8.4-10.2) mg/dL Adrenal panel 12/14/20 Range/Units 07:46 Sodium 137 (137-145) mmol/L Potassium 3.7 (3.6-5.0) mmol/L Chloride 102.7 (98-107) mmol/L Carbon Dioxide 27 (22-30) mmol/L BUN 8 L (9-20) mg/dL Creatinine 0.8 (0.8-1.3) mg/dL Glucose 117 H (75-100) mg/dL Calcium 8.6 (8.4-10.2) mg/dL Total Bilirubin 0.70 (0.1-1.2) mg/dL AST 61 H (5-40) units/L ALT 161 H (7-56) units/L Alkaline Phosphatase 86 (35-129) units/L Total Protein 7.1 (6.3-8.2) g/dL Albumin 3.6 L (3.9-5) g/dL
[2020-12-14] MEDS ORDERED: LORazepam 2 MG/ML VIAL IV ONE (18:00)
[2020-12-14] MEDS: traZODone 50 MG TAB PO SCH (21:05)
[2020-12-15] MEDS: ACETAMINOPHEN 325 MG TAB PO PRN (00:24)
[2020-12-15] MEDS: METOCLOPRAMIDE 10 MG/2 ML INJ IV SCH ×4 (00:35→22:29)
[2020-12-15] MEDS: diphenhydrAMINE 25 MG CAP PO PRN ×2 (02:04→20:40)
[2020-12-15] MEDS: SODIUM CHLORIDE 0.45% 1000 ML 1,000 ML IV SCH ×2 (02:09→22:31)
[2020-12-15] MEDS: PIPERACIL/TAZOBACTA 4.5/NS 100 4.5 GM/100 ML VIAL IV SCH ×3 (02:32→18:32)
[2020-12-15 06:24] LABS: Hematocrit 36.5 % (35.5-45.6); Hemoglobin 12.2 gm/dl (11.8-15.2); Mean Corpuscular HGB Conc 33 % (32-34); Mean Corpuscular Volume 96 fl (84-94); Platelet Count 198 K/mm3 (140-440); Red Blood Count 3.82 M/mm3 (3.65-5.03); Red Cell Distribution Width 12.6 % (13.2-15.2)
[2020-12-15 06:45] LABS: Alanine Aminotransferase 122 units/L (7-56); Albumin 3.6 g/dL (3.9-5); BUN/Creatinine Ratio 7; Blood Urea Nitrogen 7 mg/dL (9-20); Calcium 8.5 mg/dL (8.4-10.2); Hemolysis Index 8
[2020-12-15] MEDS: oxyCODONE /ACETAMINOPHEN 5-325MG TAB PO PRN ×3 (06:49→20:39)
--- NOTE | 2020-12-15 09:58 | Discharge Summary ---
Providers - Providers Date of Admission: 12/11/20 08:54 Attending physician: AARON TROY MD 12/11/20 11:19 Consult to Physician [CONS] Routine Comment: Consulting Provider: JENNIFER CABAN Physician Instructions: Reason For Exam: gallstone pancreatitis Primary care physician: UI ARCHITECT Hospitalization Reason for admission: PANCREATITIS Condition: Stable Hospital course: Patient is a 25-year-old male with no significant past medical history except for toe surgery in the past who presents to the ED with complaint of abdominal pain that has been ongoing for about 3 days starts in the epigastric area down to the umbilical area and radiates to the back. The patient states that for the past 3 days this has been waxing and waning but all of a sudden last night became persistent associated with nausea vomiting but no diarrhea. He was unable to keep any food down. While he states that he drinks socially beer his last drink was about a week ago according to him where he had 3-4 bottles. In the ER he was noted to have a lipase of over 2000 with a clinical diagnosis of pancreatitis were asked to admit the patient for further evaluation. Pain is rated a 7/10 in intensity Imaging study of ultrasound obtained shows cholelithiasis with inflamed pancreas. Dilated common bile duct. 12/12: Surgeon's input noted patient undergoing cholecystectomy today. MRI of the abdomen reviewed no choledocholithiasis noted. Continue n.p.o. until surgery continue pain control and hydration. Plan discussed with the patient verbalized understanding 12/13: Patient clinically stable, Lipase improved, but overnight with some fever, I believe this is likely due to the pancreatitis rather than infectious, nevertheless with treat for possible sepsis. Start on abx, check cultures and hydrate. He is for cholecystectomy today 12/14: Anxiety, Insomnia and fever. Doubt sepsis may be due to inflammation. Continue abx, obtain cultures, start on Trazadone tonight, one time ativan. Discussed with patient and nursing staff. 12/15: Patient clinically improved still with low grade fever but improved, will plan on discharge today if ok with surgery. Patient admitted to taking some personal meds to help him sleep. Advised against it since we do not know what it is. Spesis- likely due to Cholecysistis. Abdominal pain Acute pancreatitis likely causing above could be gallstone Cholelithiasis Transaminitis Hyperbilirubinemia Plan [facility] protocol Pain control with Dilaudid patient has received multiple doses in the ED already. Antiemetics Keep n.p.o. If patient becomes hungry wants to eat may try clear liquid diet. Reassess pain Surgical consult. EtOH use counseling considering social use but bottle count in my opinion is excess DVT and GI prophylaxis Disposition: DC-01 TO HOME OR SELFCARE Time spent for discharge: 35 MINS Core Measure Documentation - Palliative Care Palliative Care/ Comfort Measures: Not Applicable - Core Measures Any of the following diagnoses?: none Exam - Physical Exam Narrative exam: VITAL SIGNS: Reviewed. GENERAL: The patient appears normally developed, Vital signs as documented. HEAD: No signs of head trauma. EYES: Pupils are equal. Extraocular motions intact. EARS: Hearing grossly intact. MOUTH: Oropharynx is normal. NECK: No adenopathy, no JVD. CHEST: Chest with clear breath sounds bilaterally. No wheezes, rales, or rhonchi. CARDIAC: Regular rate and rhythm. S1 and S2, without murmurs, gallops, or rubs. VASCULAR: No Edema. Peripheral pulses normal and equal in all extremities. ABDOMEN: Soft, tender at surgical site, and non distended. No rebound or guarding, and no masses palpated. Bowel Sounds normal. MUSCULOSKELETAL: Good range of motion of all major joints. Extremities without clubbing, cyanosis or edema. NEUROLOGIC EXAM: Alert and oriented x 3 No focal sensory or strength deficits. Speech normal. Follows commands. PSYCHIATRIC: Mood normal. SKIN: detail exam as documented in skin assessment - Constitutional Vitals: Temp Pulse Resp BP Pulse Ox 98.8 F 83 18 142/63 95 12/15/20 04:11 12/15/20 04:11 12/15/20 04:11 12/15/20 04:11 12/15/20 04:11 Plan Activity: advance as tolerated, fall precautions Diet: low fat Special Instructions: record daily weights, record daily BP diary Follow up with: PRIMARY CARE, [Primary Care Provider] - 3-5 Days JENNIFER CABAN DO [Staff Physician] - 7 Days Prescriptions: Ciprofloxacin HCl [Ciprofloxacin TAB] 500 mg PO Q12HR #10 tab metroNIDAZOLE [Flagyl] 500 mg PO Q8HR #14 tablet traMADoL [Ultram] 50 mg PO Q6HR PRN #20 tablet PRN Reason: Pain
--- NOTE | 2020-12-15 12:03 | Progress Note ---
Assessment and Plan Assessment and plan: Patient is a 25-year-old male with no significant past medical history except for toe surgery in the past who presents to the ED with complaint of abdominal pain that has been ongoing for about 3 days starts in the epigastric area down to the umbilical area and radiates to the back. The patient states that for the past 3 days this has been waxing and waning but all of a sudden last night became persistent associated with nausea vomiting but no diarrhea. He was unable to keep any food down. While he states that he drinks socially beer his last drink was about a week ago according to him where he had 3-4 bottles. In the ER he was noted to have a lipase of over 2000 with a clinical diagnosis of pancreatitis were asked to admit the patient for further evaluation. Pain is rated a 7/10 in intensity Imaging study of ultrasound obtained shows cholelithiasis with inflamed pancreas. Dilated common bile duct. 12/12: Surgeon's input noted patient undergoing cholecystectomy today. MRI of the abdomen reviewed no choledocholithiasis noted. Continue n.p.o. until surgery continue pain control and hydration. Plan discussed with the patient verbalized understanding 12/13: Patient clinically stable, Lipase improved, but overnight with some fever, I believe this is likely due to the pancreatitis rather than infectious, nevertheless with treat for possible sepsis. Start on abx, check cultures and hydrate. He is for cholecystectomy today 12/14: Anxiety, Insomnia and fever. Doubt sepsis may be due to inflammation. Continue abx, obtain cultures, start on Trazadone tonight, one time ativan. Disc ussed with patient and nursing staff. 12/15: Patient clinically improved still with low grade fever but improved, obtain ID consult to ensure no other pathology, continue to follow cultures, WBC improving. He reportdely took some sleep medicine from home. I have advised against this. He is unable to tell us the name of the medication he took. Spesis- likely due to Cholecysistis. Abdominal pain Acute pancreatitis likely causing above could be gallstone Cholelithiasis Transaminitis Hyperbilirubinemia Plan [facility] protocol Pain control with Dilaudid patient has received multiple doses in the ED already. Antiemetics Keep n.p.o. If patient becomes hungry wants to eat may try clear liquid diet. Reassess pain Surgical consult. EtOH use counseling considering social use but bottle count in my opinion is excess DVT and GI prophylaxis History Interval history: Patient seen and examined, still with intermittent fever, also reported insomnia and anxiety Hospitalist Physical - Physical exam Narrative exam: VITAL SIGNS: Reviewed. GENERAL: The patient appears normally developed, Vital signs as documented. HEAD: No signs of head trauma. EYES: Pupils are equal. Extraocular motions intact. EARS: Hearing grossly intact. MOUTH: Oropharynx is normal. NECK: No adenopathy, no JVD. CHEST: Chest with clear breath sounds bilaterally. No wheezes, rales, or rhonchi. CARDIAC: Regular rate and rhythm. S1 and S2, without murmurs, gallops, or rubs. VASCULAR: No Edema. Peripheral pulses normal and equal in all extremities. ABDOMEN: Soft, tender at surgical site, and non distended. No rebound or guarding, and no masses palpated. Bowel Sounds normal. MUSCULOSKELETAL: Good range of motion of all major joints. Extremities without clubbing, cyanosis or edema. NEUROLOGIC EXAM: Alert and oriented x 3 No focal sensory or strength deficits. Speech normal. Follows commands. PSYCHIATRIC: Mood normal. SKIN: detail exam as documented in skin assessment - Constitutional Vitals: Temp Pulse Resp BP Pulse Ox 98.8 F 100 H 18 142/63 95 12/15/20 04:11 12/15/20 10:00 12/15/20 04:11 12/15/20 04:11 12/15/20 04:11 Results - Labs CBC & Chem 7: 12/15/20 06:04 12/15/20 06:04 Labs: Laboratory Last Values WBC 12.5 K/mm3 (4.5-11.0) H 12/15/20 06:04 RBC 3.82 M/mm3 (3.65-5.03) 12/15/20 06:04 Hgb 12.2 gm/dl (11.8-15.2) 12/15/20 06:04 Hct 36.5 % (35.5-45.6) 12/15/20 06:04 MCV 96 fl (84-94) H 12/15/20 06:04 MCH 32 pg (28-32) 12/15/20 06:04 MCHC 33 % (32-34) 12/15/20 06:04 RDW 12.6 % (13.2-15.2) L 12/15/20 06:04 Plt Count 198 K/mm3 (140-440) 12/15/20 06:04 Lymph % (Auto) 10.6 % (13.4-35.0) L 12/12/20 05:11 Jay % (Auto) 6.3 % (0.0-7.3) 12/12/20 05:11 Eos % (Auto) 0.0 % (0.0-4.3) 12/12/20 05:11 Baso % (Auto) 0.3 % (0.0-1.8) 12/12/20 05:11 Lymph # (Auto) 1.6 K/mm3 (1.2-5.4) 12/12/20 05:11 Jay # (Auto) 1.0 K/mm3 (0.0-0.8) H 12/12/20 05:11 Eos # (Auto) 0.0 K/mm3 (0.0-0.4) 12/12/20 05:11 Baso # (Auto) 0.0 K/mm3 (0.0-0.1) 12/12/20 05:11 Add Manual Diff Complete 12/11/20 04:32 Total Counted 100 12/11/20 04:32 Seg Neutrophils % 82.8 % (40.0-70.0) H 12/12/20 05:11 Seg Neuts % (Manual) 41.0 % (40.0-70.0) 12/11/20 04:32 Lymphocytes % (Manual) 54.0 % (13.4-35.0) H 12/11/20 04:32 Monocytes % (Manual) 4.0 % (0.0-7.3) 12/11/20 04:32 Eosinophils % (Manual) 1.0 % (0.0-4.3) 12/11/20 04:32 Nucleated RBC % Not Reportable 12/11/20 04:32 Seg Neutrophils # 12.7 K/mm3 (1.8-7.7) H 12/12/20 05:11 Seg Neutrophils # Man 5.2 K/mm3 (1.8-7.7) 12/11/20 04:32 Band Neutrophils # 0.0 K/mm3 12/11/20 04:32 Lymphocytes # (Manual) 6.9 K/mm3 (1.2-5.4) H 12/11/20 04:32 Abs React Lymphs (Man) 0.0 K/mm3 12/11/20 04:32 Monocytes # (Manual) 0.5 K/mm3 (0.0-0.8) 12/11/20 04:32 Eosinophils # (Manual) 0.1 K/mm3 (0.0-0.4) 12/11/20 04:32 Basophils # (Manual) 0.0 K/mm3 (0.0-0.1) 12/11/20 04:32 Metamyelocytes # 0.0 K/mm3 12/11/20 04:32 Myelocytes # 0.0 K/mm3 12/11/20 04:32 Promyelocytes # 0.0 K/mm3 12/11/20 04:32 Blast Cells # 0.0 K/mm3 12/11/20 04:32 WBC Morphology Not Reportable 12/11/20 04:32 Hypersegmented Neuts Not Reportable 12/11/20 04:32 Hyposegmented Neuts Not Reportable 12/11/20 04:32 Hypogranular Neuts Not Reportable 12/11/20 04:32 Smudge Cells Not Reportable 12/11/20 04:32 Toxic Granulation Not Reportable 12/11/20 04:32 Toxic Vacuolation Not Reportable 12/11/20 04:32 Dohle Bodies Not Reportable 12/11/20 04:32 Pelger-Huet Anomaly Not Reportable 12/11/20 04:32 Annie Rods Not Reportable 12/11/20 04:32 Platelet Estimate Consistent w auto 12/11/20 04:32 Clumped Platelets Not Reportable 12/11/20 04:32 Plt Clumps, EDTA Not Reportable 12/11/20 04:32 Large Platelets Not Reportable 12/11/20 04:32 Giant Platelets Not Reportable 12/11/20 04:32 Platelet Satelliting Not Reportable 12/11/20 04:32 Plt Morphology Comment Not Reportable 12/11/20 04:32 RBC Morphology Normal 12/11/20 04:32 Dimorphic RBCs Not Reportable 12/11/20 04:32 Polychromasia Not Reportable 12/11/20 04:32 Hypochromasia Not Reportable 12/11/20 04:32 Poikilocytosis Not Reportable 12/11/20 04:32 Anisocytosis Not Reportable 12/11/20 04:32 Microcytosis Not Reportable 12/11/20 04:32 Macrocytosis Not Reportable 12/11/20 04:32 Spherocytes Not Reportable 12/11/20 04:32 Pappenheimer Bodies Not Reportable 12/11/20 04:32 Sickle Cells Not Reportable 12/11/20 04:32 Target Cells Not Reportable 12/11/20 04:32 Tear Drop Cells Not Reportable 12/11/20 04:32 Ovalocytes Not Reportable 12/11/20 04:32 Helmet Cells Not Reportable 12/11/20 04:32 [place] Bodies Not Reportable 12/11/20 04:32 [place] Rings Not Reportable 12/11/20 04:32 Hemanth Cells Not Reportable 12/11/20 04:32 Bite Cells Not Reportable 12/11/20 04:32 Crenated Cell Not Reportable 12/11/20 04:32 Elliptocytes Not Reportable 12/11/20 04:32 Acanthocytes (Spur) Not Reportable 12/11/20 04:32 Rouleaux Not Reportable 12/11/20 04:32 Hemoglobin C Crystals Not Reportable 12/11/20 04:32 Schistocytes Not Reportable 12/11/20 04:32 Malaria parasites Not Reportable 12/11/20 04:32 Alex Bodies Not Reportable 12/11/20 04:32 Hem Pathologist Commnt No 12/11/20 04:32 Sodium 138 mmol/L (137-145) 12/15/20 06:04 Potassium 3.5 mmol/L (3.6-5.0) L 12/15/20 06:04 Chloride 102.8 mmol/L (98-107) 12/15/20 06:04 Carbon Dioxide 28 mmol/L (22-30) 12/15/20 06:04 Anion Gap 11 mmol/L 12/15/20 06:04 BUN 7 mg/dL (9-20) L 12/15/20 06:04 Creatinine 1.0 mg/dL (0.8-1.3) 12/15/20 06:04 Estimated GFR > 60 ml/min 12/15/20 06:04 BUN/Creatinine Ratio 7 % 12/15/20 06:04 Glucose 107 mg/dL (75-100) H 12/15/20 06:04 Calcium 8.5 mg/dL (8.4-10.2) 12/15/20 06:04 Magnesium 2.00 mg/dL (1.7-2.3) 12/11/20 10:48 Total Bilirubin 0.80 mg/dL (0.1-1.2) 12/15/20 06:04 Direct Bilirubin 0.9 mg/dL (0-0.2) H 12/11/20 04:32 Indirect Bilirubin 0.6 mg/dL 12/11/20 04:32 AST 44 units/L (5-40) H 12/15/20 06:04 ALT 122 units/L (7-56) H 12/15/20 06:04 Alkaline Phosphatase 86 units/L (35-129) 12/15/20 06:04 Ammonia 50.0 umol/L (25-60) 12/11/20 10:48 Total Protein 6.9 g/dL (6.3-8.2) 12/15/20 06:04 Albumin 3.6 g/dL (3.9-5) L 12/15/20 06:04 Albumin/Globulin Ratio 1.1 % 12/15/20 06:04 Lipase 106 units/L (13-60) H 12/14/20 07:46 Microbiology: Microbiology 12/14/20 14:01 Peripheral/Venous Blood Culture - Preliminary Culture in Progress 12/14/20 14:01 Peripheral/Venous Blood Culture - Preliminary Culture in Progress Quintana/IV: Voiding Method Urinal IV Catheter Type [Left INT / Saline Lock Antecubital] Active Medications - Current Medications Current Medications: Generic Name Dose Route Start Last Admin Trade Name Freq PRN Reason Stop Dose Admin Acetaminophen 650 mg 12/11/20 10:00 12/15/20 00:24 Acetaminophen 325 Mg Tab PO 650 mg Q4H PRN Administration Pain MILD(1-3)/Fever >100.5/HANKINS Albuterol 2.5 mg 12/11/20 12:00 Albuterol 2.5 Mg/3 Ml Nebu IH Q4HRT PRN Shortness Of Breath Chlordiazepoxide HCl 50 mg 12/11/20 10:00 12/14/20 10:40 Chlordiazepoxide 25 Mg Cap PO 50 mg Q1H PRN Administration CIWA-Ar 8-15 Diphenhydramine HCl 25 mg 12/14/20 00:12 12/15/20 02:04 Diphenhydramine 25 Mg Cap PO 25 mg QHS PRN Administration Sleep Diphenhydramine HCl 50 mg 12/14/20 12:49 12/14/20 13:09 Diphenhydramine 50 Mg/Ml Vial IV 50 mg ONCE PRN Administration insomnia Piperacillin Sod/Tazobactam Sod 4.5 gm in 100 mls @ 200 mls/hr 12/13/20 09:00 12/15/20 02:32 Zosyn/Ns 4.5gm/100ml IV 200 mls/hr Q8H ERAN Administration Protocol Sodium Chloride 1,000 mls @ 75 mls/hr 12/14/20 12:00 12/15/20 02:09 Nacl 0.45% 1000 Ml IV 75 mls/hr DIRECT ERAN Administration Metoclopramide HCl 10 mg 12/11/20 14:35 12/15/20 06:48 Metoclopramide 10 Mg/2 Ml Inj IV 10 mg Q8H ERAN Administration Naloxone HCl 0.1 mg 12/11/20 10:00 Naloxone 0.4 Mg/1 Ml Inj IV Q2MIN PRN Res Rate </= 8 or 02 SAT < 92% Ondansetron HCl 4 mg 12/11/20 10:00 12/14/20 10:35 Ondansetron 4 Mg/2 Ml Inj IV 4 mg Q4H PRN Administration Nausea And Vomiting Oxycodone/Acetaminophen 2 tab 12/13/20 14:00 12/15/20 06:49 Oxycodone /Acetaminophen 5-325mg Tab PO 2 tab Q6H PRN Administration Pain, Moderate (4-6) Sodium Chloride 10 ml 12/11/20 10:00 12/14/20 21:05 Sodium Chloride 0.9% 10 Ml Flush Syringe IV 10 ml BID ERAN Administration Sodium Chloride 10 ml 12/11/20 10:00 12/14/20 06:08 Sodium Chloride 0.9% 10 Ml Flush Syringe IV 10 ml PRN PRN Administration LINE FLUSH Trazodone HCl 50 mg 12/14/20 22:00 12/14/20 21:05 Trazodone 50 Mg Tab PO 50 mg QHS ERAN Administration
--- NOTE | 2020-12-15 14:24 | Event Note ---
Date: 12/15/20 Patient chart reviewed. Remains febrile with Tm 102. On zosyn IV since 12/13/20. s/p laparoscopic cholecystectomy POD 2. WBC stable. Tolerating diet. Recommend ID consult. Follow up blcx - prelim results show no growth. If fever continues, recommend repeating CT scan A/P with oral and IV contrast Discussed with Dr. Adame.
--- NOTE | 2020-12-15 14:54 | Consultation ---
History of Present Illness - Reason for Consult Consult date: 12/15/20 pancreatitis Requesting physician: AARON TROY - History of Present Illness 25 years old male with no significant medical history, admitted on 12/11/2020 secondary to 3-day history of severe epigastric abdominal pain. Abdominal pain radiated to the back. Patient worsened during the last 24 hours associated with nausea and vomiting. On arrival, temperature 102, HR 50, RR 18, BP 108/43. Initial WBC 12.7. Creatinine 0.4. AST 226. ALT 584. Lipase 2544. Blood culture 12/14/[address] abdomen shows moderate pancreatic inflammation with moderate stranding of fluid around peripancreatic tissues, extending to the left abdominal lateral area. No fluid collection, no pseudocyst, no necrosis. Patient was taken to the operating room for gallstone pancreatitis, underwent laparoscopic cholecystectomy on 12/13/2020. Findings inflamed gallbladder with chronic wall thickening, partially intrahepatic gallbladder at the dome, moderate ascites. Review of Systems: positive in bold print General: fever, chills, malaise Cutaneous: rash, pruritus Head: headaches or injury Eyes: changes in vision, eye pain, double vision Ears: ear pain, ear discharge, ringing or hearing loss Nose: nose bleeding, stuffiness Mouth & throat: bleeding gums, horseness, no dental problems, or swollen glands Neck: no pain, node enlargement/lumps, tyroid enlargement or tenderness Respiratory: SOB, cough, MURPHY, wheezing, sputum, hemoptysis, pleuritic chest pain Cardiovascular: chest pain, leg edema, cyanosis, MURPHY, orthopnea Musculoskeletal: edema, deformities, pain Gastrointestinal: nausea, vomiting, abdominal pain, hematemesis, diarrhea, constipation, melena, bright red blood in stools, fecal incontinence, jaundice Genitourinary/Reproductive: frequent urination, dysuria, hematuria, incontinence Neurogical: seizures, headaches, weakness, paresthesias, loss of speech or vision; memory loss, vertigo, tremors, numbness Psychiatric: stable mood; excessive anxiety, sadness or moodiness Past History Past Medical History: No medical history Past Surgical History: Other (R ankle surgery, Toe surgery) Social history: lives with family, full code. denies: alcohol abuse (Although drinks socially), prescription drug abuse Family history: no significant family history Medications and Allergies Allergies Allergy/AdvReac Type Severity Reaction Status Date / Time No Known Allergies Allergy Verified 12/11/20 06:38 Home Medications Medication Instructions Recorded Confirmed Last Taken Type Ciprofloxacin HCl [Ciprofloxacin 500 mg PO Q12HR #10 tab 12/15/20 Unknown Rx TAB] metroNIDAZOLE [Flagyl] 500 mg PO Q8HR #14 tablet 12/15/20 Unknown Rx traMADoL [Ultram] 50 mg PO Q6HR PRN #20 tablet 12/15/20 Unknown Rx Active Meds: Active Medications Acetaminophen (Acetaminophen 325 Mg Tab) 650 mg PO Q4H PRN PRN Reason: Pain MILD(1-3)/Fever >100.5/HANKINS Last Admin: 12/15/20 00:24 Dose: 650 mg Documented by: Albuterol (Albuterol 2.5 Mg/3 Ml Nebu) 2.5 mg IH Q4HRT PRN PRN Reason: Shortness Of Breath Chlordiazepoxide HCl (Chlordiazepoxide 25 Mg Cap) 50 mg PO Q1H PRN PRN Reason: CIWA-Ar 8-15 Last Admin: 12/14/20 10:40 Dose: 50 mg Documented by: Diphenhydramine HCl (Diphenhydramine 25 Mg Cap) 25 mg PO QHS PRN PRN Reason: Sleep Last Admin: 12/15/20 02:04 Dose: 25 mg Documented by: Diphenhydramine HCl (Diphenhydramine 50 Mg/Ml Vial) 50 mg IV ONCE PRN PRN Reason: insomnia Last Admin: 12/14/20 13:09 Dose: 50 mg Documented by: Piperacillin Sod/Tazobactam Sod (Zosyn/Ns 4.5gm/100ml) 4.5 gm in 100 mls @ 200 mls/hr IV Q8H ERAN; Protocol Last Admin: 12/15/20 02:32 Dose: 200 mls/hr Documented by: Sodium Chloride (Nacl 0.45% 1000 Ml) 1,000 mls @ 75 mls/hr IV DIRECT ERAN Last Admin: 12/15/20 02:09 Dose: 75 mls/hr Documented by: Metoclopramide HCl (Metoclopramide 10 Mg/2 Ml Inj) 10 mg IV Q8H ERAN Last Admin: 12/15/20 06:48 Dose: 10 mg Documented by: Naloxone HCl (Naloxone 0.4 Mg/1 Ml Inj) 0.1 mg IV Q2MIN PRN PRN Reason: Res Rate </= 8 or 02 SAT < 92% Ondansetron HCl (Ondansetron 4 Mg/2 Ml Inj) 4 mg IV Q4H PRN PRN Reason: Nausea And Vomiting Last Admin: 12/14/20 10:35 Dose: 4 mg Documented by: Oxycodone/Acetaminophen (Oxycodone /Acetaminophen 5-325mg Tab) 2 tab PO Q6H PRN PRN Reason: Pain, Moderate (4-6) Last Admin: 12/15/20 14:28 Dose: 2 tab Documented by: Sodium Chloride (Sodium Chloride 0.9% 10 Ml Flush Syringe) 10 ml IV BID [facility] Last Admin: 12/14/20 21:05 Dose: 10 ml Documented by: Sodium Chloride (Sodium Chloride 0.9% 10 Ml Flush Syringe) 10 ml IV PRN PRN PRN Reason: LINE FLUSH Last Admin: 12/14/20 06:08 Dose: 10 ml Documented by: Trazodone HCl (Trazodone 50 Mg Tab) 50 mg PO QHS [facility] Last Admin: 12/14/20 21:05 Dose: 50 mg Documented by: Physical Examination - Physical Exam Narrative exam: General appearance: Alert in NAD pleasant Eyes: anicteric sclerae, moist conjunctivae; no lid-lag; PERRLA HENT: Normocephalic, Atraumatic; normal external ears, nares open, oropharynx clear Neck: supple, tracheal midline, no JVD Lungs: CTA, with normal respiratory effort and no intercostal retractions CV: RRR no murmur Abdomen: Soft, diffuse tenderness, laparoscopic surgical wound okay Extremities: no edema, no cyanosis Skin: No rash. Psych: no agitated Neuro: alert and oriented x 3. Moving all extermities - - Constitutional Vitals: Vital Signs Temp Pulse Resp BP Pulse Ox 102.4 F H 110 H 18 128/84 97 12/15/20 13:41 12/15/20 13:41 12/15/20 13:41 12/15/20 13:41 12/15/20 13:41 Temperature -Last 24 Hours Temperature 102.4 F Temperature 102.4 F Temperature 99.3 F Temperature 98.8 F Temperature 102.1 F Temperature 102.7 F Temperature 99.4 F Results - Labs CBC & Chem 7: 12/15/20 06:04 12/15/20 06:04 Labs: Abnormal lab results 12/15/20 12/15/20 Range/Units 06:04 06:04 WBC 12.5 H (4.5-11.0) K/mm3 MCV 96 H (84-94) fl RDW 12.6 L (13.2-15.2) % Potassium 3.5 L (3.6-5.0) mmol/L BUN 7 L (9-20) mg/dL Glucose 107 H (75-100) mg/dL AST 44 H (5-40) units/L ALT 122 H (7-56) units/L Albumin 3.6 L (3.9-5) g/dL Assessment and Plan Cultures: Blood culture 12/14/2020 no growth today Assessment: 25 years old male with no significant medical history, admitted on 12/11/2020 secondary to 3-day history of severe epigastric abdominal pain: #Sepsis: Present on admission with fever, leukocytosis, hypotension: Likely secondary to gallstone pancreatitis. Fever continues. #Acute gallstone pancreatitis: Patient underwent laparoscopic cholecystectomy on 12/13/2020. Initial CT with moderate pancreatic inflammation with moderate stranding of fluid around peripancreatic tissues. CT did not show abscess, co llection, necrosis, pseudocyst. #Transaminitis: Likely secondary to cholecystitis/pancreatitis. Recommendations: -Obtain urinalysis and chest x-ray -Continue IV Zosyn for now -Obtain procalcitonin and CRP -Follow-up blood cultures -If fever continues and work-up is negative recommend repeat CT abdomen evaluation for complicated pancreatitis Will follow. Aixa Bailon MD Infectious Diseases Manager [employer] [facility] M [phone] O [phone]
--- NOTE | 2020-12-15 17:09 | XRay Report ---
CHEST 2 VIEWS INDICATION / CLINICAL INFORMATION: high fever eval for pneumonia. COMPARISON: None available. FINDINGS: SUPPORT DEVICES: None. HEART / MEDIASTINUM: No significant abnormality. LUNGS / PLEURA: Left lower lobe pneumonia No pneumothorax. ADDITIONAL FINDINGS: No significant additional findings. IMPRESSION: 1. Left lower lobe pneumonia Signer Name: Ilya Vargas MD Signed: 12/15/2020 5:04 PM Workstation Name: [id number]
--- NOTE | 2020-12-15 17:25 | Cat Scan Report ---
CT ABDOMEN AND PELVIS WITH CONTRAST HISTORY: Pancreatitis COMPARISON: Prior CT 12/11/2020 TECHNIQUE: Routine abdominal and pelvic CT exam performed following intravenous contrast administrat ion. Patient received 100 mL IV Omnipaque 300. All CT scans at this location are performed using CT d ose reduction for ALARA by means of automated exposure control. FINDINGS: CT ABDOMEN: Lung Bases: There has been development of small bilateral pleural effusions with adjacent passive ate lectasis. Liver: No significant abnormality. Biliary: Gallbladder is surgically absent. Spleen: No significant abnormality. Unenlarged. Pancreas: The overall amount of edema surrounding the pancreas has increased from the prior exam. The re is no appreciable necrosis or focal well-defined fluid collection though. Adrenals: No significant abnormality. Kidneys: No significant abnormality. Lymphatics: No lymphadenopathy. Vasculature: No significant abnormality. Bowel/Peritoneum: Nonobstructive bowel. Sigmoid diverticulosis without mesocolonic fat stranding. No free air. No free fluid. Normal appendix. CT PELVIC: : No significant abnormality. Lymphatics: No lymphadenopathy. Osseous Structures: No aggressive appearing osseous lesions. Additional Findings: None IMPRESSION: 1. Worsening edema around the pancreas without evidence of necrosis or focal well-defined fluid colle ction. 2. Interval development of small bilateral pleural effusions and bibasilar atelectasis in the lungs. Signer Name: Eliot Bach MD Signed: 12/15/2020 5:20 PM Workstation Name: [id number]
[2020-12-15] MEDS: chlordiazePOXIDE 25 MG CAP PO PRN (22:29)
[2020-12-15] MEDS: traZODone 50 MG TAB PO SCH (22:29)
[2020-12-16] MEDS: oxyCODONE /ACETAMINOPHEN 5-325MG TAB PO PRN ×3 (03:02→17:20)
[2020-12-16] MEDS: PIPERACIL/TAZOBACTA 4.5/NS 100 4.5 GM/100 ML VIAL IV SCH ×3 (03:03→17:28)
[2020-12-16] MEDS: METOCLOPRAMIDE 10 MG/2 ML INJ IV SCH ×3 (06:42→21:38)
[2020-12-16 08:22] LABS: Basophils # (Auto) 0.1 K/mm3 (0.0-0.1); Basophils % (Auto) 0.4 % (0.0-1.8); Eosinophils # (Auto) 0.1 K/mm3 (0.0-0.4); Eosinophils % (Auto) 0.4 % (0.0-4.3); Hematocrit 35.8 % (35.5-45.6); Hemoglobin 12.2 gm/dl (11.8-15.2); Lymphocytes % (Auto) 13.3 % (13.4-35.0); Mean Corpuscular HGB Conc 34 % (32-34); Mean Corpuscular Volume 95 fl (84-94); Monocytes # (Auto) 1.6 K/mm3 (0.0-0.8); Monocytes % (Auto) 11.1 % (0.0-7.3); Platelet Count 236 K/mm3 (140-440); Red Blood Count 3.79 M/mm3 (3.65-5.03); Red Cell Distribution Width 12.7 % (13.2-15.2)
[2020-12-16 08:43] LABS: Alanine Aminotransferase 99 units/L (7-56); Albumin 3.5 g/dL (3.9-5); BUN/Creatinine Ratio 7; Blood Urea Nitrogen 7 mg/dL (9-20); Calcium 8.9 mg/dL (8.4-10.2); Hemolysis Index 3
[2020-12-16] MEDS: HEPARIN 5,000 UNIT/1 ML VIAL SUB-Q SCH ×3 (09:01→21:20)
--- NOTE | 2020-12-16 10:09 | Progress Note ---
Assessment and Plan Cultures: Blood culture 12/14/2020 no growth today Assessment: 25 years old male with no significant medical history, admitted on 12/11/2020 secondary to 3-day history of severe epigastric abdominal pain: #Sepsis/persistent fever: Leukocytosis also up. Likely secondary to gallstone pancreatitis. Fever continues. Procalcitonin is 0.3. #Acute gallstone pancreatitis: Patient underwent laparoscopic cholecystectomy on 12/13/2020. Initial CT with moderate pancreatic inflammation with moderate stranding of fluid around peripancreatic tissues. CT did not show abscess, collection, necrosis, pseudocyst. Repeat CT shows worsening pancreatic edema. No evidence of necrosis or collection. CRP 23. #Presumed left lower lobe pneumonia: Seen on chest x-ray. On CT bilateral pleural effusion and atelectasis. This is likely reactive to pancreatitis. Noted elevated procalcitonin. #Transaminitis: Likely secondary to cholecystitis/pancreatitis. Recommendations: -Check SARS-CoV-2 PCR. He reports he had COVID-19 back in January 2020. -Consider bowel rest -worsening pancreatic edema on CT -Obtain urinalysis pending -Continue IV Zosyn D3 -Check MRSA PCR -Repeat blood cultures -Patient expressed his father is traveling from [place] to [place] today to transfer the patient to another facility since fever has not been resolved. I extensively explained acute pancreatitis can complicate with persistent fever and at the same time we are ruling out other possibilities. Will follow. Aixa Bailon MD Infectious Diseases Qualification Engineer [facility] M [phone] O [phone] Subjective Date of service: 12/16/20 Principal diagnosis: Pancreatitis Interval history: Remains anxious, denies abdominal pain, denies cough, denies shortness of breath wants to go home. Objective - Exam Narrative Exam: General appearance: Alert in NAD anxious Eyes: anicteric sclerae, moist conjunctivae; no lid-lag; PERRLA HENT: Normocephalic, Atraumatic; normal external ears, nares open, oropharynx clear Neck: supple, tracheal midline, no JVD Lungs: Diminished bilaterally CV: RRR no murmur Abdomen: Soft, diffuse mild tenderness, laparoscopic surgical wound okay Extremities: no edema, no cyanosis Skin: No rash. Psych: Anxious Neuro: alert and oriented x 3. Moving all extermities - - Constitutional Vitals: Vital Signs Temp Pulse Resp BP Pulse Ox 100.8 F H 110 H 18 130/77 94 12/16/20 07:59 12/16/20 07:59 12/16/20 07:59 12/16/20 07:59 12/16/20 07:59 Temperature -Last 24 Hours Temperature 100.8 F Temperature 102.6 F Temperature 101.4 F Temperature 98.0 F Temperature 101.0 F Temperature 102.4 F Temperature 102.4 F - Labs CBC & Chem 7: 12/16/20 07:59 12/16/20 07:59 Labs: Abnormal lab results 12/15/20 12/15/20 12/16/20 Range/Units 14:17 19:15 07:59 WBC 14.7 H (4.5-11.0) K/mm3 MCV 95 H (84-94) fl RDW 12.7 L (13.2-15.2) % Lymph % (Auto) 13.3 L (13.4-35.0) % [place] % (Auto) 11.1 H (0.0-7.3) % [place] # (Auto) 1.6 H (0.0-0.8) K/mm3 Seg Neutrophils % 74.8 H (40.0-70.0) % Seg Neutrophils # 11.0 H (1.8-7.7) K/mm3 Sodium (137-145) mmol/L BUN (9-20) mg/dL Glucose (75-100) mg/dL ALT (7-56) units/L C-Reactive Protein 23.10 H (0.00-1.30) mg/dL Albumin (3.9-5) g/dL Lipase 120 H (13-60) units/L 12/16/20 Range/Units 07:59 WBC (4.5-11.0) K/mm3 MCV (84-94) fl RDW (13.2-15.2) % Lymph % (Auto) (13.4-35.0) % [place] % (Auto) (0.0-7.3) % [place] # (Auto) (0.0-0.8) K/mm3 Seg Neutrophils % (40.0-70.0) % Seg Neutrophils # (1.8-7.7) K/mm3 Sodium 135 L (137-145) mmol/L BUN 7 L (9-20) mg/dL Glucose 111 H (75-100) mg/dL ALT 99 H (7-56) units/L C-Reactive Protein (0.00-1.30) mg/dL Albumin 3.5 L (3.9-5) g/dL Lipase 110 H (13-60) units/L
--- NOTE | 2020-12-16 12:56 | Progress Note ---
Assessment and Plan Assessment and plan: Patient is a 25-year-old male with no significant past medical history except for toe surgery in the past who presents to the ED with complaint of abdominal pain that has been ongoing for about 3 days starts in the epigastric area down to the umbilical area and radiates to the back. The patient states that for the past 3 days this has been waxing and waning but all of a sudden last night became persistent associated with nausea vomiting but no diarrhea. He was unable to keep any food down. While he states that he drinks socially beer his last drink was about a week ago according to him where he had 3-4 bottles. In the ER he was noted to have a lipase of over 2000 with a clinical diagnosis of pancreatitis were asked to admit the patient for further evaluation. Pain is rated a 7/10 in intensity Imaging study of ultrasound obtained shows cholelithiasis with inflamed pancreas. Dilated common bile duct. 12/12: Surgeon's input noted patient undergoing cholecystectomy today. MRI of the abdomen reviewed no choledocholithiasis noted. Continue n.p.o. until surgery continue pain control and hydration. Plan discussed with the patient verbalized understanding 12/13: Patient clinically stable, Lipase improved, but overnight with some fever, I believe this is likely due to the pancreatitis rather than infectious, nevertheless with treat for possible sepsis. Start on abx, check cultures and hydrate. He is for cholecystectomy today 12/14: Anxiety, Insomnia and fever. Doubt sepsis may be due to inflammation. Continue abx, obtain cultures, start on Trazadone tonight, one time ativan. Disc ussed with patient and nursing staff. 12/15: Patient clinically improved still with low grade fever but improved, obtain ID consult to ensure no other pathology, continue to follow cultures, WBC improving. He reportdely took some sleep medicine from home. I have advised against this. He is unable to tell us the name of the medication he took. 12/16: Repeat CT abdomen and pelvis shows worsening pancreatitis due to edema around the pancreas. This is likely a form in the fever. We will continue to monitor advised patient of this finding. ID following closely. Patient also noted to have left lobar pneumonia encourage incentive spirometer. Also encourage patient to stay on just clear liquids at this time until symptoms are resolved completely. ID is also recommended obtaining a Covid test this has been ordered. Again patient is status post lap cholecystectomy without any complication Spesis- likely due to Cholecysistis. Abdominal pain Acute pancreatitis likely causing above could be gallstone Cholelithiasis Transaminitis Hyperbilirubinemia Left lobar pneumonia Plan [facility] protocol Pain control with Dilaudid patient has received multiple doses in the ED already. Antiemetics Keep n.p.o. If patient becomes hungry wants to eat may try clear liquid diet. Reassess pain Surgical consult. EtOH use counseling considering social use but bottle count in my opinion is excess DVT and GI prophylaxis History Interval history: Patient seen and examined, still with intermittent fever, also reported insomnia and anxiety Hospitalist Physical - Physical exam Narrative exam: VITAL SIGNS: Reviewed. GENERAL: The patient appears normally developed, Vital signs as documented. HEAD: No signs of head trauma. EYES: Pupils are equal. Extraocular motions intact. EARS: Hearing grossly intact. MOUTH: Oropharynx is normal. NECK: No adenopathy, no JVD. CHEST: Chest with clear breath sounds bilaterally. No wheezes, rales, or rhonchi. CARDIAC: Regular rate and rhythm. S1 and S2, without murmurs, gallops, or rubs. VASCULAR: No Edema. Peripheral pulses normal and equal in all extremities. ABDOMEN: Soft, tender at surgical site, and non distended. No rebound or guarding, and no masses palpated. Bowel Sounds normal. MUSCULOSKELETAL: Good range of motion of all major joints. Extremities without clubbing, cyanosis or edema. NEUROLOGIC EXAM: Alert and oriented x 3 No focal sensory or strength deficits. Speech normal. Follows commands. PSYCHIATRIC: Mood normal. SKIN: detail exam as documented in skin assessment - Constitutional Vitals: Temp Pulse Resp BP Pulse Ox 100.8 F H 110 H 18 130/77 94 12/16/20 07:59 12/16/20 07:59 12/16/20 07:59 12/16/20 07:59 12/16/20 07:59 Results - Labs CBC & Chem 7: 12/16/20 07:59 12/16/20 07:59 Labs: Laboratory Last Values WBC 14.7 K/mm3 (4.5-11.0) H 12/16/20 07:59 RBC 3.79 M/mm3 (3.65-5.03) 12/16/20 07:59 Hgb 12.2 gm/dl (11.8-15.2) 12/16/20 07:59 Hct 35.8 % (35.5-45.6) 12/16/20 07:59 MCV 95 fl (84-94) H 12/16/20 07:59 MCH 32 pg (28-32) 12/16/20 07:59 MCHC 34 % (32-34) 12/16/20 07:59 RDW 12.7 % (13.2-15.2) L 12/16/20 07:59 Plt Count 236 K/mm3 (140-440) 12/16/20 07:59 Lymph % (Auto) 13.3 % (13.4-35.0) L 12/16/20 07:59 [place] % (Auto) 11.1 % (0.0-7.3) H 12/16/20 07:59 Eos % (Auto) 0.4 % (0.0-4.3) 12/16/20 07:59 Baso % (Auto) 0.4 % (0.0-1.8) 12/16/20 07:59 Lymph # (Auto) 2.0 K/mm3 (1.2-5.4) 12/16/20 07:59 [place] # (Auto) 1.6 K/mm3 (0.0-0.8) H 12/16/20 07:59 Eos # (Auto) 0.1 K/mm3 (0.0-0.4) 12/16/20 07:59 Baso # (Auto) 0.1 K/mm3 (0.0-0.1) 12/16/20 07:59 Add Manual Diff Complete 12/11/20 04:32 Total Counted 100 12/11/20 04:32 Seg Neutrophils % 74.8 % (40.0-70.0) H 12/16/20 07:59 Seg Neuts % (Manual) 41.0 % (40.0-70.0) 12/11/20 04:32 Lymphocytes % (Manual) 54.0 % (13.4-35.0) H 12/11/20 04:32 Monocytes % (Manual) 4.0 % (0.0-7.3) 12/11/20 04:32 Eosinophils % (Manual) 1.0 % (0.0-4.3) 12/11/20 04:32 Nucleated RBC % Not Reportable 12/11/20 04:32 Seg Neutrophils # 11.0 K/mm3 (1.8-7.7) H 12/16/20 07:59 Seg Neutrophils # Man 5.2 K/mm3 (1.8-7.7) 12/11/20 04:32 Band Neutrophils # 0.0 K/mm3 12/11/20 04:32 Lymphocytes # (Manual) 6.9 K/mm3 (1.2-5.4) H 12/11/20 04:32 Abs React Lymphs (Man) 0.0 K/mm3 12/11/20 04:32 Monocytes # (Manual) 0.5 K/mm3 (0.0-0.8) 12/11/20 04:32 Eosinophils # (Manual) 0.1 K/mm3 (0.0-0.4) 12/11/20 04:32 Basophils # (Manual) 0.0 K/mm3 (0.0-0.1) 12/11/20 04:32 Metamyelocytes # 0.0 K/mm3 12/11/20 04:32 Myelocytes # 0.0 K/mm3 12/11/20 04:32 Promyelocytes # 0.0 K/mm3 12/11/20 04:32 Blast Cells # 0.0 K/mm3 12/11/20 04:32 WBC Morphology Not Reportable 12/11/20 04:32 Hypersegmented Neuts Not Reportable 12/11/20 04:32 Hyposegmented Neuts Not Reportable 12/11/20 04:32 Hypogranular Neuts Not Reportable 12/11/20 04:32 Smudge Cells Not Reportable 12/11/20 04:32 Toxic Granulation Not Reportable 12/11/20 04:32 Toxic Vacuolation Not Reportable 12/11/20 04:32 Dohle Bodies Not Reportable 12/11/20 04:32 Pelger-Huet Anomaly Not Reportable 12/11/20 04:32 Annie Rods Not Reportable 12/11/20 04:32 Platelet Estimate Consistent w auto 12/11/20 04:32 Clumped Platelets Not Reportable 12/11/20 04:32 Plt Clumps, EDTA Not Reportable 12/11/20 04:32 Large Platelets Not Reportable 12/11/20 04:32 Giant Platelets Not Reportable 12/11/20 04:32 Platelet Satelliting Not Reportable 12/11/20 04:32 Plt Morphology Comment Not Reportable 12/11/20 04:32 RBC Morphology Normal 12/11/20 04:32 Dimorphic RBCs Not Reportable 12/11/20 04:32 Polychromasia Not Reportable 12/11/20 04:32 Hypochromasia Not Reportable 12/11/20 04:32 Poikilocytosis Not Reportable 12/11/20 04:32 Anisocytosis Not Reportable 12/11/20 04:32 Microcytosis Not Reportable 12/11/20 04:32 Macrocytosis Not Reportable 12/11/20 04:32 Spherocytes Not Reportable 12/11/20 04:32 Pappenheimer Bodies Not Reportable 12/11/20 04:32 Sickle Cells Not Reportable 12/11/20 04:32 Target Cells Not Reportable 12/11/20 04:32 Tear Drop Cells Not Reportable 12/11/20 04:32 Ovalocytes Not Reportable 12/11/20 04:32 Helmet Cells Not Reportable 12/11/20 04:32 Coffey-Bison Bodies Not Reportable 12/11/20 04:32 Iselin Rings Not Reportable 12/11/20 04:32 [place] Cells Not Reportable 12/11/20 04:32 Bite Cells Not Reportable 12/11/20 04:32 Crenated Cell Not Reportable 12/11/20 04:32 Elliptocytes Not Reportable 12/11/20 04:32 Acanthocytes (Spur) Not Reportable 12/11/20 04:32 Rouleaux Not Reportable 12/11/20 04:32 Hemoglobin C Crystals Not Reportable 12/11/20 04:32 Schistocytes Not Reportable 12/11/20 04:32 Malaria parasites Not Reportable 12/11/20 04:32 Alex Bodies Not Reportable 12/11/20 04:32 Hem Pathologist Commnt No 12/11/20 04:32 Sodium 135 mmol/L (137-145) L 12/16/20 07:59 Potassium 3.9 mmol/L (3.6-5.0) 12/16/20 07:59 Chloride 100.3 mmol/L (98-107) 12/16/20 07:59 Carbon Dioxide 26 mmol/L (22-30) 12/16/20 07:59 Anion Gap 13 mmol/L 12/16/20 07:59 BUN 7 mg/dL (9-20) L 12/16/20 07:59 Creatinine 1.0 mg/dL (0.8-1.3) 12/16/20 07:59 Estimated GFR > 60 ml/min 12/16/20 07:59 BUN/Creatinine Ratio 7 % 12/16/20 07:59 Glucose 111 mg/dL (75-100) H 12/16/20 07:59 Calcium 8.9 mg/dL (8.4-10.2) 12/16/20 07:59 Magnesium 2.00 mg/dL (1.7-2.3) 12/11/20 10:48 Total Bilirubin 0.70 mg/dL (0.1-1.2) 12/16/20 07:59 Direct Bilirubin 0.9 mg/dL (0-0.2) H 12/11/20 04:32 Indirect Bilirubin 0.6 mg/dL 12/11/20 04:32 AST 35 units/L (5-40) 12/16/20 07:59 ALT 99 units/L (7-56) H 12/16/20 07:59 Alkaline Phosphatase 100 units/L (35-129) 12/16/20 07:59 Ammonia 50.0 umol/L (25-60) 12/11/20 10:48 C-Reactive Protein 23.10 mg/dL (0.00-1.30) H 12/15/20 19:15 Total Protein 7.1 g/dL (6.3-8.2) 12/16/20 07:59 Albumin 3.5 g/dL (3.9-5) L 12/16/20 07:59 Albumin/Globulin Ratio 1.0 % 12/16/20 07:59 Lipase 110 units/L (13-60) H 12/16/20 07:59 Procalcitonin 0.37 ng/mL (<0.15) 12/15/20 19:15 Microbiology: Microbiology 12/14/20 14:01 Peripheral/Venous Blood Culture - Preliminary NO GROWTH AFTER 24 HOURS 12/14/20 14:01 Peripheral/Venous Blood Culture - Preliminary NO GROWTH AFTER 24 HOURS Quintana/IV: Voiding Method Urinal IV Catheter Type [Left INT / Saline Lock Antecubital] Active Medications - Current Medications Current Medications: Generic Name Dose Route Start Last Admin Trade Name Freq PRN Reason Stop Dose Admin Acetaminophen 650 mg 12/11/20 10:00 12/15/20 00:24 Acetaminophen 325 Mg Tab PO 650 mg Q4H PRN Administration Pain MILD(1-3)/Fever >100.5/HANKINS Albuterol 2.5 mg 12/11/20 12:00 Albuterol 2.5 Mg/3 Ml Nebu IH Q4HRT PRN Shortness Of Breath Chlordiazepoxide HCl 50 mg 12/11/20 10:00 12/15/20 22:29 Chlordiazepoxide 25 Mg Cap PO 50 mg Q1H PRN Administration CIWA-Ar 8-15 Diphenhydramine HCl 25 mg 12/14/20 00:12 12/15/20 20:40 Diphenhydramine 25 Mg Cap PO 25 mg QHS PRN Administration Sleep Heparin Sodium (Porcine) 5,000 unit 12/16/20 07:30 12/16/20 09:01 Heparin 5,000 Unit/1 Ml Vial SUB-Q 5,000 unit Q8HR ERAN Administration Piperacillin Sod/Tazobactam Sod 4.5 gm in 100 mls @ 200 mls/hr 12/13/20 09:00 12/16/20 03:03 Zosyn/Ns 4.5gm/100ml IV 200 mls/hr Q8H ERAN Administration Protocol Sodium Chloride 1,000 mls @ 75 mls/hr 12/14/20 12:00 12/15/20 22:31 Nacl 0.45% 1000 Ml IV 75 mls/hr DIRECT ERAN Administration Metoclopramide HCl 10 mg 12/11/20 14:35 12/16/20 06:42 Metoclopramide 10 Mg/2 Ml Inj IV Not Given Q8H ERAN Naloxone HCl 0.1 mg 12/11/20 10:00 Naloxone 0.4 Mg/1 Ml Inj IV Q2MIN PRN Res Rate </= 8 or 02 SAT < 92% Ondansetron HCl 4 mg 12/11/20 10:00 12/14/20 10:35 Ondansetron 4 Mg/2 Ml Inj IV 4 mg Q4H PRN Administration Nausea And Vomiting Oxycodone/Acetaminophen 2 tab 12/13/20 14:00 12/16/20 09:00 Oxycodone /Acetaminophen 5-325mg Tab PO 2 tab Q6H PRN Administration Pain, Moderate (4-6) Sodium Chloride 10 ml 12/11/20 10:00 12/16/20 03:06 Sodium Chloride 0.9% 10 Ml Flush Syringe IV Not Given BID ERAN Sodium Chloride 10 ml 12/11/20 10:00 12/14/20 06:08 Sodium Chloride 0.9% 10 Ml Flush Syringe IV 10 ml PRN PRN Administration LINE FLUSH Trazodone HCl 50 mg 12/14/20 22:00 12/15/20 22:29 Trazodone 50 Mg Tab PO 50 mg QHS ERAN Administration
[2020-12-16 14:24] LABS: Bilirubin,Urine NEG (Negative); Blood,Urine SM (Negative); Color,Urine Yellow (Yellow)
[2020-12-16] MEDS: ACETAMINOPHEN 325 MG TAB PO PRN (17:19)
[2020-12-16] MEDS: chlordiazePOXIDE 25 MG CAP PO PRN (21:20)
[2020-12-16] MEDS: traZODone 50 MG TAB PO SCH (21:20)
[2020-12-16] MEDS: diphenhydrAMINE 25 MG CAP PO PRN (21:20)
[2020-12-17] MEDS: PIPERACIL/TAZOBACTA 4.5/NS 100 4.5 GM/100 ML VIAL IV SCH ×3 (00:51→18:00)
[2020-12-17] MEDS: oxyCODONE /ACETAMINOPHEN 5-325MG TAB PO PRN ×3 (04:30→18:00)
[2020-12-17] MEDS: ONDANSETRON 4 MG/2 ML INJ IV PRN ×2 (04:30→13:06)
[2020-12-17] MEDS: HEPARIN 5,000 UNIT/1 ML VIAL SUB-Q SCH ×3 (06:02→22:12)
[2020-12-17] MEDS: METOCLOPRAMIDE 10 MG/2 ML INJ IV SCH ×3 (06:03→22:20)
[2020-12-17 06:26] LABS: Hematocrit 34.6 % (35.5-45.6); Hemoglobin 11.5 gm/dl (11.8-15.2); Mean Corpuscular HGB Conc 33 % (32-34); Mean Corpuscular Volume 96 fl (84-94); Platelet Count 238 K/mm3 (140-440); Red Blood Count 3.62 M/mm3 (3.65-5.03); Red Cell Distribution Width 12.5 % (13.2-15.2)
[2020-12-17 06:32] LABS: BUN/Creatinine Ratio 7; Blood Urea Nitrogen 7 mg/dL (9-20); Calcium 8.8 mg/dL (8.4-10.2); Hemolysis Index 7
[2020-12-17] MEDS: SODIUM CHLORIDE 0.45% 1000 ML 1,000 ML IV SCH ×2 (11:01→22:13)
--- NOTE | 2020-12-17 12:44 | Progress Note ---
Assessment and Plan Cultures: Blood culture 12/14/2020 no growth today SARS-CoV-2 PCR neg Assessment: 25 years old male with no significant medical history, admitted on 12/11/2020 secondary to 3-day history of severe epigastric abdominal pain: #Sepsis: fever and leukocytosis improving. Likely secondary to gallstone pancreatitis. Procalcitonin is 0.3. SARS Cov2 PCR neg. UA neg. #Acute gallstone pancreatitis: Patient underwent laparoscopic cholecystectomy on 12/13/2020. Initial CT with moderate pancreatic inflammation with moderate stranding of fluid around peripancreatic tissues. CT did not show abscess, collection, necrosis, pseudocyst. Repeat CT shows worsening pancreatic edema. No evidence of necrosis or collection. CRP 23. #Presumed left lower lobe pneumonia: Seen on chest x-ray. On CT bilateral pleural effusion and atelectasis. This is likely reactive to pancreatitis. Noted elevated procalcitonin. #Transaminitis: Likely secondary to cholecystitis/pancreatitis. Improving. Recommendations: -repeat CRP/Procal -Continue IV Zosyn D4 -f/u repeat blood cultures -monitor for 24h if no fever and stable after advancing diet ok to d/c Will follow. Aixa Bailon MD Infectious Diseases Social Work Specialist [facility] ([facility]) M [phone] O [phone] Subjective Date of service: 12/17/20 Principal diagnosis: Pancreatitis Interval history: Feels better, denies abdominal pain, denies cough, denies shortness or cough Objective - Exam Narrative Exam: General appearance: Alert in NAD Eyes: anicteric sclerae, moist conjunctivae; no lid-lag; PERRLA HENT: Normocephalic, Atraumatic; normal external ears, nares open, oropharynx clear Neck: supple, tracheal midline, no JVD Lungs: Diminished bilaterally CV: RRR no murmur Abdomen: Soft, diffuse mild tenderness, laparoscopic surgical wound okay Extremities: no edema, no cyanosis Skin: No rash. Psych: Anxious Neuro: alert and oriented x 3. Moving all extermities - - Constitutional Vitals: Vital Signs Temp Pulse Resp BP Pulse Ox 99.1 F 90 18 124/75 100 12/17/20 11:57 12/17/20 11:57 12/17/20 11:57 12/17/20 11:57 12/17/20 11:57 Temperature -Last 24 Hours Temperature 99.1 F Temperature 98.5 F Temperature 100.5 F Temperature 100.0 F Temperature 100.1 F Temperature 98.1 F - Labs CBC & Chem 7: 12/17/20 05:21 12/17/20 05:21 Labs: Abnormal lab results 12/17/20 12/17/20 Range/Units 05:21 05:21 WBC 12.0 H (4.5-11.0) K/mm3 RBC 3.62 L (3.65-5.03) M/mm3 Hgb 11.5 L (11.8-15.2) gm/dl Hct 34.6 L (35.5-45.6) % MCV 96 H (84-94) fl RDW 12.5 L (13.2-15.2) % Sodium 135 L (137-145) mmol/L BUN 7 L (9-20) mg/dL Glucose 112 H (75-100) mg/dL
--- NOTE | 2020-12-17 16:20 | Progress Note ---
Assessment and Plan Assessment Spesis- likely due to Cholecysistis. Abdominal pain Acute pancreatitis likely causing above could be gallstone Cholelithiasis Transaminitis Hyperbilirubinemia Left lobar pneumonia Plan [facility] protocol Pain control with Dilaudid. patient has received multiple doses in the ED already. Antiemetics Clear liquids Reassess pain Surgical consult. EtOH use counseling considering social use but bottle count in my opinion is excess DVT and GI prophylaxis Subjective Date of service: 12/17/20 Principal diagnosis: Pancreatitis Interval history: Patient is a 25-year-old male with no significant past medical history except for toe surgery in the past who presents to the ED with complaint of abdominal pain that has been ongoing for about 3 days starts in the epigastric area down to the umbilical area and radiates to the back. The patient states that for the past 3 days this has been waxing and waning but all of a sudden last night be came persistent associated with nausea vomiting but no diarrhea. He was unable to keep any food down. While he states that he drinks socially beer his last drink was about a week ago according to him where he had 3-4 bottles. In the ER he was noted to have a lipase of over 2000 with a clinical diagnosis of pancreatitis were asked to admit the patient for further evaluation. Pain is rated a 7/10 in intensity Imaging study of ultrasound obtained shows cholelithiasis with inflamed pancreas. Dilated common bile duct. 12/12: Surgeon's input noted patient undergoing cholecystectomy today. MRI of the abdomen reviewed no choledocholithiasis noted. Continue n.p.o. until surgery continue pain control and hydration. Plan discussed with the patient verbalized understanding 12/13: Patient clinically stable, Lipase improved, but overnight with some fever, I believe this is likely due to the pancreatitis rather than infectious, nevertheless with treat for possible sepsis. Start on abx, check cultures and hydrate. He is for cholecystectomy today 12/14: Anxiety, Insomnia and fever. Doubt sepsis may be due to inflammation. Continue abx, obtain cultures, start on Trazadone tonight, one time ativan. Discussed with patient and nursing staff. 12/15: Patient clinically improved still with low grade fever but improved, obtain ID consult to ensure no other pathology, continue to follow cultures, WBC improving. He reportdely took some sleep medicine from home. I have advised against this. He is unable to tell us the name of the medication he took. 12/16: Repeat CT abdomen and pelvis shows worsening pancreatitis due to edema around the pancreas. We will continue to monitor advised patient of this finding. ID following closely. Patient also noted to have left lobar pneumonia encourage incentive spirometer. Also encourage patient to stay on just clear liquids at this time until symptoms are resolved completely. ID is also recommended obtaining a Covid test this has been ordered. Again patient is status post lap cholecystectomy without any complication 12/17/2020 Patient symptomatically a lot better sitting in the bed and also walking around the room Continue clear liquids Possible discharge tomorrow if asymptomatic Objective - Constitutional Vitals: Vital Signs - 12hr 12/17/20 12/17/20 12/17/20 04:30 05:30 08:22 Temperature 98.5 F Pulse Rate 90 Respiratory 20 18 18 Rate Blood Pressure 114/73 O2 Sat by Pulse 95 Oximetry 12/17/20 11:57 Temperature 99.1 F Pulse Rate 90 Respiratory 18 Rate Blood Pressure 124/75 O2 Sat by Pulse 100 Oximetry General appearance: Present: no acute distress, well-nourished - EENT Eyes: PERRL, EOM intact ENT: hearing intact, clear oral mucosa Ears: bilateral: normal - Neck Neck: supple, normal ROM - Respiratory Respiratory effort: normal Respiratory: bilateral: CTA - Breasts Breasts: normal - Cardiovascular Heart rate: 78 Rhythm: regular Heart Sounds: Present: S1 & S2. Absent: gallop, rub Extremities: pulses intact, No edema, normal color, Full ROM - Gastrointestinal General gastrointestinal: Present: soft, non-tender, non-distended, normal bowel sounds - Genitourinary Male genitourinary: normal - Integumentary Integumentary: clear, warm, dry - Musculoskeletal Musculoskeletal: 1, strength equal bilaterally - Neurologic Neurologic: moves all extremities - Psychiatric Psychiatric: memory intact, appropriate mood/affect, intact judgment & insight - Labs CBC & Chem 7: 12/17/20 05:21 12/17/20 05:21 Labs: Abnormal lab results 12/17/20 12/17/20 12/17/20 Range/Units 05:21 05:21 13:06 WBC 12.0 H (4.5-11.0) K/mm3 RBC 3.62 L (3.65-5.03) M/mm3 Hgb 11.5 L (11.8-15.2) gm/dl Hct 34.6 L (35.5-45.6) % MCV 96 H (84-94) fl RDW 12.5 L (13.2-15.2) % Sodium 135 L (137-145) mmol/L BUN 7 L (9-20) mg/dL Glucose 112 H (75-100) mg/dL C-Reactive Protein 27.10 H (0.00-1.30) mg/dL
[2020-12-17] MEDS: traZODone 50 MG TAB PO SCH (22:13)
[2020-12-18] MEDS: PIPERACIL/TAZOBACTA 4.5/NS 100 4.5 GM/100 ML VIAL IV SCH ×2 (00:41→10:24)
[2020-12-18] MEDS: oxyCODONE /ACETAMINOPHEN 5-325MG TAB PO PRN ×2 (00:41→06:04)
[2020-12-18] MEDS: HEPARIN 5,000 UNIT/1 ML VIAL SUB-Q SCH (06:04)
[2020-12-18] MEDS: METOCLOPRAMIDE 10 MG/2 ML INJ IV SCH (06:04)
[2020-12-18 09:36] VITALS: BP 112/70
--- NOTE | 2020-12-18 09:37 | Event Note ---
Date: 12/18/[address] scan 12/15 showed worsening inflammation around pancreas without necrosis or infection along with post surgical changes consistent with cholecystectomy. Lipase improved. Patient now afebrile x24 hours. He is tolerating a diet and ambulating. No pain. May be discharged from surgical standpoint and follow up in office in 10 days.
--- NOTE | 2020-12-18 11:10 | Progress Note ---
Assessment and Plan Cultures: Blood culture 12/14/2020 no growth today SARS-CoV-2 PCR neg Assessment: 25 years old male with no significant medical history, admitted on 12/11/2020 secondary to 3-day history of severe epigastric abdominal pain: #Sepsis: fever resolved and leukocytosis improving. Likely secondary to gallstone pancreatitis. Procalcitonin is 0.3-->0.2. SARS Cov2 PCR neg. UA neg. #Acute gallstone pancreatitis: Patient underwent laparoscopic cholecystectomy on 12/13/2020. Initial CT with moderate pancreatic inflammation with moderate stranding of fluid around peripancreatic tissues. CT did not show abscess, collection, necrosis, pseudocyst. Repeat CT shows worsening pancreatic edema. No evidence of necrosis or collection. CRP 23-->27. #Presumed left lower lobe pneumonia: Seen on chest x-ray. On CT bilateral pleural effusion and atelectasis. This is likely reactive to pancreatitis. Noted elevated procalcitonin. #Transaminitis: Likely secondary to cholecystitis/pancreatitis. Improving. Recommendations: -Stop Zosyn D6 -Ok to d/c from ID standpoint -Surgical f/u D/w Attending Will follow. Aixa Bailon MD Infectious Diseases [employer] [facility] ([facility]) M [phone] O [phone] Subjective Date of service: 12/18/20 Principal diagnosis: Pancreatitis Interval history: Feels better, no fever, no abdominal pain, wants to go home. Objective - Exam Narrative Exam: General appearance: Alert in NAD Eyes: anicteric sclerae, moist conjunctivae; no lid-lag; PERRLA HENT: Normocephalic, Atraumatic; normal external ears, nares open, oropharynx clear Neck: supple, tracheal midline, no JVD Lungs: Diminished bilaterally CV: RRR no murmur Abdomen: Soft, diffuse mild tenderness, laparoscopic surgical wound okay Extremities: no edema, no cyanosis Skin: No rash. Psych: Anxious Neuro: alert and oriented x 3. Moving all extermities - - Constitutional Vitals: Vital Signs Temp Pulse Resp BP Pulse Ox 98.3 F 82 18 112/70 95 12/18/20 08:48 12/18/20 08:48 12/18/20 08:48 12/18/20 08:48 12/18/20 08:48 Temperature -Last 24 Hours Temperature 98.3 F Temperature 99.1 F Temperature 98.7 F Temperature 98.9 F Temperature 98.4 F Temperature 99.1 F - Labs CBC & Chem 7: 12/17/20 05:21 12/17/20 05:21 Labs: Abnormal lab results 12/17/20 Range/Units 13:06 C-Reactive Protein 27.10 H (0.00-1.30) mg/dL
--- NOTE | 2020-12-18 11:37 | Discharge Summary ---
Providers - Providers Date of Admission: 12/11/20 08:54 Date of discharge: 12/18/20 Attending physician: DOROTHY BETANCOURT 12/11/20 11:19 Consult to Physician [CONS] Routine Comment: Consulting Provider: JENNIFER CABAN Physician Instructions: Reason For Exam: gallstone pancreatitis 12/15/20 11:11 Consult to Physician [CONS] Routine Comment: Consulting Provider: TRE VELOZ Physician Instructions: Reason For Exam: sepsis Primary care physician: [employer]RI[employer] Hospitalization Condition: Stable Hospital course: Subjective Date of service: 12/18/20 Principal diagnosis: Pancreatitis Interval history: Patient is a 25-year-old male with no significant past medical history except for toe surgery in the past who presents to the ED with complaint of abdominal pain that has been ongoing for about 3 days starts in the epigastric area down to the umbilical area and radiates to the back. The patient states that for the past 3 days this has been waxing and waning but all of a sudden last night became persistent associated with nausea vomiting but no diarrhea. He was unable to keep any food down. While he states that he drinks socially beer his last drink was about a week ago according to him where he had 3-4 bottles. In the ER he was noted to have a lipase of over 2000 with a clinical diagnosis of pancreatitis were asked to admit the patient for further evaluation. Pain is rated a 7/10 in intensity Imaging study of ultrasound obtained shows cholelithiasis with inflamed pancreas. Dilated common bile duct. 12/12: Surgeon's input noted patient undergoing cholecystectomy today. MRI of the abdomen reviewed no choledocholithiasis noted. Continue n.p.o. until surgery continue pain control and hydration. Plan discussed with the patient verbalized understanding 12/13: Patient clinically stable, Lipase improved, but overnight with some fever, I believe this is likely due to the pancreatitis rather than infectious, nevertheless with treat for possible sepsis. Start on abx, check cultures and hydrate. He is for cholecystectomy today 12/14: Anxiety, Insomnia and fever. Doubt sepsis may be due to inflammation. Continue abx, obtain cultures, start on Trazadone tonight, one time ativan. Discussed with patient and nursing staff. 12/15: Patient clinically improved still with low grade fever but improved, obtain ID consult to ensure no other pathology, continue to follow cultures, WBC improving. He reportdely took some sleep medicine from home. I have advised against this. He is unable to tell us the name of the medication he took. 12/16: Repeat CT abdomen and pelvis shows worsening pancreatitis due to edema around the pancreas. We will continue to monitor advised patient of this finding. ID following closely. Patient also noted to have left lobar pneumonia encourage incentive spirometer. Also encourage patient to stay on just clear liquids at this time until symptoms are resolved completely. ID is also recommended obtaining a Covid test this has been ordered. Again patient is status post lap cholecystectomy without any complication 12/17/2020 Patient symptomatically a lot better sitting in the bed and also walking around the room Continue clear liquids Possible discharge tomorrow if asymptomatic 10/18/21 Sx better Assessment and Plan Assessment Spesis- likely due to Cholecysistis--resolved Abdominal pain--resolved Acute pancreatitis likely caused by gallstone Cholelithiasis--Had cholecystectomy Transaminitis--improving Hyperbilirubinemia--Improved Left lobar pneumonia--Iimproved Plan Counselled about alcohol avoidance Disposition: DC-01 TO HOME OR SELFCARE - Discharge Diagnoses (1) Acute pancreatitis Status: Acute (2) Gallstone pancreatitis Status: Acute (3) Acute abdominal pain Status: Acute (4) Acute nausea with nonbilious vomiting Status: Acute (5) EtOH dependence Status: Acute Qualifiers: Complication of substance-induced condition: uncomplicated Core Measure Documentation - Palliative Care Palliative Care/ Comfort Measures: Not Applicable - Core Measures Any of the following diagnoses?: none Exam - Constitutional Vitals: Temp Pulse Resp BP Pulse Ox 98.3 F 76 19 112/70 95 12/18/20 08:48 12/18/20 10:00 12/18/20 10:00 12/18/20 08:48 12/18/20 08:48 General appearance: Present: no acute distress, well-nourished - EENT Eyes: Present: PERRL ENT: hearing intact, clear oral mucosa - Neck Neck: Present: supple, normal ROM - Respiratory Respiratory effort: normal Respiratory: bilateral: CTA - Cardiovascular Heart rate: 78 Rhythm: regular Heart Sounds: Present: S1 & S2. Absent: rub, click - Extremities Extremities: pulses symmetrical, No edema Peripheral Pulses: within normal limits - Abdominal General gastrointestinal: Present: soft, non-tender, non-distended, normal bowel sounds Male genitourinary: Present: normal - Integumentary Integumentary: Present: clear, warm, dry - Musculoskeletal Musculoskeletal: gait normal, strength equal bilaterally - Psychiatric Psychiatric: appropriate mood/affect, intact judgment & insight - Neurologic Neurologic: CNII-XII intact, moves all extremities Plan Activity: no restrictions Diet: clear liquids, advance as tolerated Follow up with: JENNIFER CABAN DO [Staff Physician] - 7 Days PRIMARY CARE, [Primary Care Provider] - 3-5 Days Forms: AMA Form Prescriptions: Ciprofloxacin HCl [Ciprofloxacin TAB] 500 mg PO Q12HR #10 tab metroNIDAZOLE [Flagyl] 500 mg PO Q8HR #14 tablet traMADoL [Ultram] 50 mg PO Q6HR PRN #20 tablet PRN Reason: Pain
== END 2020-12-18 13:02 | disposition home or self-care (01) | DRG 853 ==
LOC: ED 04:21 → 4A 08:54
PROVIDERS: ADMIT Internal Medicine; ATTEND Internal Medicine
PROC: 0FT44ZZ Resection of Gallbladder, Percutaneous Endoscopic Approach (ICD-10-PCS; principal; 2020-12-13)
DX: A41.9 Sepsis, unspecified organism (principal); K85.90 Acute pancreatitis without necrosis or infection, unspecified; J18.9 Pneumonia, unspecified organism; K80.21 Calculus of gallbladder without cholecystitis with obstruction; R74.01 Elevation of levels of liver transaminase levels; E80.6 Other disorders of bilirubin metabolism; F10.20 Alcohol dependence, uncomplicated; Z20.822 Contact with and (suspected) exposure to COVID-19; Z79.899 Other long term (current) drug therapy
CPT/HCPCS: 36415; 71046; 74177; 74181; 76700; 80048; 80053; 80076; 81001; 82140; 83690; 83735; 84145; 85007; 85025; 85027; 86140; 87040; 88304; 94760; 96374; 96375; G0378; A4217; J0461; J0690; J1100; J1170; J1200; J1644; J1885; J2060; J2270; J2405; J2543; J2704; J2710; J2765; J3480; J7030; J7120; J7121; Q0162; Q9967; U0003